=== PATIENT | male | born 1930 | race Caucasian/White ===

== ENCOUNTER 2016-11-06 09:22 | Outpatient (CLI) | payer MEDICARE | END 2016-11-06 09:23 | disposition home or self-care (01) | LOC: NAVSJIPCSP 09:22 | PROVIDERS: ATTEND Internal Medicine | DX: E78.5 Hyperlipidemia, unspecified (principal); E03.9 Hypothyroidism, unspecified; Z79.899 Other long term (current) drug therapy | CPT/HCPCS: 36415; 80061; 84443 ==

== ENCOUNTER 2017-02-05 10:17 | Outpatient (CLI) | payer MEDICARE ==
[2017-02-05 12:27] LABS: #Eosinphils 0.3 thou/uL (0.0-0.7); #Lymphocytes 1.5 thou/uL (1.20-3.40); #Monocytes 0.7 thou/uL (0.11-0.59); #Neutrophils 4.8 thou/uL (1.40-6.50); %Basophils 0.6 % (0.0-1.0); %Eosinophils 3.7 % (0.0-10.0); %Lymphocytes 20.7 % (21.0-51.0); %Monocytes 8.9 % (0.0-10.0); %Neutrophils 66.1 % (42.0-75.0); Hemoglobin 15.1 g/dL (14.0-18.0); Mean Corpuscular HGB CONC 31.6 g/dL (32.0-36.0); Mean Corpuscular Hemoglobin 29.3 pg (27.0-31.0); Mean Corpuscular Volume 92.8 fl (80.0-94.0); Mean Platelet Volume 9.5 fL (7.4-10.4); Platelet Count 179 thou/uL (130-400); RBC Distribution Width 12.9 % (11.5-14.5); Red Blood Cell (RBC) Count 5.14 mill/uL (4.70-6.10); White Blood Cell (WBC) Count 7.3 thou/uL (4.8-10.8)
[2017-02-05 13:16] LABS: ALT (SGPT) 21 U/L (8-55); AST (SGOT) 24 U/L (5-34); Albumin 4.3 g/dL (3.4-4.8); Alkaline Phosphatase 73 U/L (40-150); Anion Gap 16 mmol/L (10-20); BUN (Urea Nitrogen) 24 mg/dL (8.4-25.7); Bilirubin, Total 0.9 mg/dL (0.2-1.2); Calc. Creatinine Clearance 0 mL/min (70-130); Calcium 9.3 mg/dL (7.8-10.44); Carbon Dioxide 23 mmol/L (23-31); Cardiac Risk 3.1 (Less than 4.5); Chloride 111 mmol/L (98-107); Cholesterol 132 mg/dl (< 200 Desired); Estimated GFR-MDRD 59; Globulin 2.7 g/dL (2.4-3.5); Glucose 92 mg/dL (83-110); HDL Cholesterol 42 mg/dL (>60 Neg Risk); LDL Cholesterol, Calculated 76 mg/dL; Potassium 4.8 mmol/L (3.5-5.1); Sodium 145 mmol/L (136-145); Triglycerides 70 mg/dL (Less than 150)
== END 2017-02-05 10:18 | disposition home or self-care (01) ==
LOC: NAVSJIPCSP 10:17
PROVIDERS: ATTEND Internal Medicine
DX: E78.5 Hyperlipidemia, unspecified (principal); E03.9 Hypothyroidism, unspecified; Z79.899 Other long term (current) drug therapy
CPT/HCPCS: 36415; 80053; 80061; 84443; 85025

== ENCOUNTER 2017-05-12 09:51 | Outpatient (CLI) | payer MEDICARE ==
[2017-05-12 12:57] LABS: Cardiac Risk 2.8 (Less than 4.5)
== END 2017-05-12 09:52 | disposition home or self-care (01) ==
LOC: NAVSJIPCSP 09:51
PROVIDERS: ATTEND Internal Medicine
DX: E03.9 Hypothyroidism, unspecified (principal); E78.5 Hyperlipidemia, unspecified; Z79.899 Other long term (current) drug therapy
CPT/HCPCS: 36415; 80061; 84443

== ENCOUNTER 2018-10-01 14:40 | Emergency (ER) | payer MEDICARE ==
[2018-10-01 16:03] LABS: Hemoglobin 12.4 g/dL (14.0-18.0); Mean Corpuscular Hemoglobin 27.8 pg (27.0-31.0); Mean Corpuscular Volume 89.7 fL (78.0-98.0); Mean Platelet Volume 7.5 fL (7.4-10.4); Platelet Count 376 thou/uL (130-400); RBC Distribution Width 15.2 % (11.5-14.5); Red Blood Cell (RBC) Count 4.46 mill/uL (4.70-6.10); White Blood Cell (WBC) Count 21.7 thou/uL (4.8-10.8)
[2018-10-01 16:05] LABS: ALT (SGPT) 82 U/L (8-55); AST (SGOT) 62 U/L (5-34); Albumin 3.7 g/dL (3.4-4.8); Alkaline Phosphatase 298 U/L (40-150); Anion Gap 15 mmol/L (10-20); BUN (Urea Nitrogen) 27 mg/dL (8.4-25.7); Bilirubin, Total 1.8 mg/dL (0.2-1.2); CK (CPK) 260 U/L (30-200); Calc. Creatinine Clearance 0 mL/min (70-130); Carbon Dioxide 26 mmol/L (23-31); Chloride 109 mmol/L (98-107); Estimated GFR-MDRD 66; Globulin 3.6 g/dL (2.4-3.5); Glucose 132 mg/dL (83-110); Potassium 4.4 mmol/L (3.5-5.1); Protein, Total 7.3 g/dL (5.8-8.1); Sodium 146 mmol/L (136-145)
[2018-10-01 16:08] LABS: MDiff Complete? YES
[2018-10-01 16:10] LABS: Band 5 % (5-11); Lymphocytes 7 % (21-51); Monocytes 4 % (0-10); Neutrophil 84 % (42-75); Platelet Morphology Comment Appears Adequate
--- NOTE | 2018-10-01 16:16 | RAD ---
CHEST 1 VIEW: COMPARISON: 09/19/2015. HISTORY: Weakness and fall. Dyspnea. FINDINGS: Atherosclerosis of the aortic knob. Enlarged cardiac silhouette. The pulmonary vessel and hilum are normal. Costophrenic angles are clear. No mass. No consolidation. No pneumothorax or osseous abn ormalities. IMPRESSION: Atherosclerosis. No acute cardiopulmonary process. POS: [facility]
[2018-10-01 16:36] LABS: CKMB 9.4 ng/mL (0-6.6)
[2018-10-01] MEDS ORDERED: Piperacillin/Tazobactam 3.375 GM VIAL ONE (16:38)
[2018-10-01] MEDS ORDERED: Sodium Chloride 0.9% 100 ML ONE (16:40)
[2018-10-01 17:05] LABS: Bilirubin Negative (Negative); Blood, Urine Moderate (Negative); Clarity Clear (Clear); Glucose, Urine (Dipstick) Negative (Negative); Leukocyte Small (Negative); Nitrite Negative (Negative); Protein, Urine (Dipstick) Negative (Neg-Trace); Specific Gravity, Urine 1.025 (1.005-1.030); Urobilinogen 0.2 mg/dL (0.2-1.0); pH, Urine 5.5 (5.0-9.0)
[2018-10-01] MEDS ORDERED: Sodium Chloride 0.9% 250 ML 250 ML ONE (17:20)
[2018-10-01 17:23] LABS: Bacteria/HPF 1+ HPF (None Seen); Other Microscopic Description NO; Squamous Epithelial 0-3 HPF (0-3)
== END 2018-10-01 18:47 | disposition short-term general hospital (02) ==
LOC: NAV ERS 14:40
DX: A41.9 Sepsis, unspecified organism (principal); E03.9 Hypothyroidism, unspecified; I10 Essential (primary) hypertension; I48.91 Unspecified atrial fibrillation; Z79.899 Other long term (current) drug therapy; Z79.01 Long term (current) use of anticoagulants
CPT/HCPCS: 51701; 71045; 80053; 81003; 81015; 82550; 82553; 83605; 83880; 84484; 85025; 87040; 87149; 93005; 96365; 96367; J2543; J3370; J7050

== ENCOUNTER 2018-10-05 22:01 | Inpatient (IN) | payer MEDICARE ==
[2018-10-06] MEDS: Levothyroxine Sodium 100 MCG TAB PO SCH (05:26)
[2018-10-06] MEDS: Carvedilol 3.125 MG TAB PO SCH ×2 (08:14→17:00)
[2018-10-06] MEDS: Apixaban 5 MG TAB PO SCH ×2 (08:15→21:04)
[2018-10-06] MEDS: Aspirin 81 mg Enteric Coated Tablet PO SCH (08:15)
[2018-10-06] MEDS: Amoxicillin/Potassium Clav 875 MG TAB PO SCH ×2 (08:15→21:04)
[2018-10-06] MEDS: Furosemide 40 MG TAB PO SCH (08:15)
--- NOTE | 2018-10-06 17:09 | HP ---
CHIEF COMPLAINT: Enterococcal urinary tract infection and deconditioning, requiring physical therapy and finishing up his antibiotics. BRIEF HISTORY: This is a very pleasant 88-year-old male, who is well known to me for quite a few years, apparently noticed significant weakness and altered mental status and so was brought to the ER for evaluation. He was felt to be septic and was started on IV fluids, IV antibiotics, and transferred to [facility], which is his preferred hospital. He was noted to have what seems to be urinary tract infection with enterococcus. He also had a mild bump in his troponin, but that was felt to be due to demand ischemia. He was seen by Cardiology. He was changed from Xarelto and Brilinta to Eliquis and aspirin and he was felt to be a candidate for inpatient rehabilitation and transferred here. His IV antibiotics were switched to oral Augmentin. All his other medicines remain the same. The patient is up in bed and denies any complaints. He denies any fever or chills. He denies any chest pain or shortness of breath. He is tolerating his medications and his diet. He states he is significantly weak, more so with his right knee. He does have a significant bruise on his knee and he states that this was x-rayed at [facility]. I do not have that report, and I have asked nursing to get me a copy of that report. 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 PAST MEDICAL HISTORY: 1. Atrial fibrillation. 2. Hypertension. 3. Hypothyroidism. 4. Degenerative joint disease. 5. History of MRSA, requiring chronic suppressive therapy, which he has completed about a year or two ago. PAST SURGICAL HISTORY: 1. 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 2. Tonsillectomy. ALLERGIES: TO CEPHALEXIN, BUT HE CAN TOLERATE PENICILLIN. PSYCHOSOCIAL HISTORY: No history of tobacco or IV drug abuse. Social alcohol intake, very active and independent with his cane. FAMILY HISTORY: Noncontributory to current admission. REVIEW OF SYSTEMS: CARDIOVASCULAR: Denies any chest pain, shortness of breath, palpitations, PND, orthopnea, or pedal edema. RESPIRATORY: Denies any chronic cough, expectoration, or pleuritic type chest pain. GASTROINTESTINAL: Denies any nausea, vomiting, diarrhea, constipation, hematemesis, melena, or hematochezia. GENITOURINARY: Denies any hematuria. CENTRAL NERVOUS SYSTEM: Denies any focal numbness or weakness. Just generalized weakness. No fainting spells. CURRENT MEDICATIONS: 1. Augmentin 875 mg p.o. b.i.d. until October 08. 2. Eliquis 5 mg b.i.d. 3. Ecotrin 81 mg daily. 4. Carvedilol 3.125 mg b.i.d. 5. Lasix 40 mg daily. 6. Levoxyl 200 mcg p.o. in the morning. 7. Lisinopril 5 mg at bedtime. 8. Protonix 40 mg daily. PHYSICAL EXAMINATION: GENERAL: Very pleasant 88-year-old male, in no apparent distress. He responds appropriate to questions. He is alert, awake, and oriented x3. No family at bedside. VITAL SIGNS: He is afebrile. Heart rate 64, respirations 20, oxygen saturation 95% on room air, blood pressure 124/58. HEENT: Normocephalic, atraumatic. Pupils equal and reactive to light and accommodation. Extraocular muscles intact. NECK: No JVD, thyromegaly, cervical carotid bruits. CARDIOVASCULAR: S1 and S2 plus. Rate and rhythm regular. RESPIRATORY: Normal vesicular breath sounds heard on lung castillo. ABDOMEN: Soft, nontender. Bowel sounds heard in all quadrants. EXTREMITIES: Without cyanosis, clubbing. Right knee with confusion, crepitus with range of motion. Bilateral legs with stasis dermatitis. CENTRAL NERVOUS SYSTEM: Alert, awake, and oriented x3. Cranial nerves 2 through 12 intact. Generalized weakness and grossly nonfocal. LABORATORY VALUES: Pending. IMPRESSION: 1. Urinary tract infection, possibly with enterococcus. 2. Hypertension. 3. Hypothyroidism. 4. Atrial fibrillation. 5. Osteoarthritis. 6. Deconditioning. PLAN: 1. Continue current medications. 2. Heart healthy diet. 3. DVT prophylaxis-he is already on Eliquis. 4. Stress ulcer prophylaxis-he is on Protonix. 5. Decubitus precautions. 6. Monitor right knee contusion. 7. Get x-ray report from [facility]. 8. PT, OT eval and treat. 9. Routine laboratory values. 10. Discussed with the patient in detail and all questions answered. 11. No family at bedside. 12. Estimated length of stay is 10 to 14 days. Monitor for any recurrence of urinary tract infection. Job ID: [id number]
[2018-10-06] MEDS: Lisinopril 5 MG TAB PO SCH (21:04)
[2018-10-07] MEDS: Levothyroxine Sodium 100 MCG TAB PO SCH (05:40)
[2018-10-07 05:57] LABS: #Lymphocytes 1.3 thou/uL (1.20-3.40); #Neutrophils 6.5 thou/uL (1.40-6.50); %Basophils 0.4 % (0.0-1.0); %Lymphocytes 14.5 % (21.0-51.0); %Monocytes 11.2 % (0.0-10.0); %Neutrophils 73.8 % (42.0-75.0); Hemoglobin 11.1 g/dL (14.0-18.0); Mean Corpuscular HGB CONC 30.1 g/dL (32.0-36.0); Mean Corpuscular Hemoglobin 26.9 pg (27.0-31.0); Mean Corpuscular Volume 89.4 fL (78.0-98.0); Mean Platelet Volume 6.7 fL (7.4-10.4); Platelet Count 406 thou/uL (130-400); RBC Distribution Width 15.1 % (11.5-14.5); Red Blood Cell (RBC) Count 4.12 mill/uL (4.70-6.10); White Blood Cell (WBC) Count 8.8 thou/uL (4.8-10.8)
[2018-10-07 06:03] LABS: Anion Gap 13 mmol/L (10-20); BUN (Urea Nitrogen) 38 mg/dL (8.4-25.7); Calc. Creatinine Clearance 63 mL/min (70-130); Carbon Dioxide 31 mmol/L (23-31); Chloride 106 mmol/L (98-107); Estimated GFR-MDRD 57; Glucose 130 mg/dL (83-110); Potassium 3.7 mmol/L (3.5-5.1); Sodium 146 mmol/L (136-145)
[2018-10-07] MEDS: Furosemide 40 MG TAB PO SCH (09:06)
[2018-10-07] MEDS: Carvedilol 3.125 MG TAB PO SCH ×2 (09:07→17:52)
[2018-10-07] MEDS: Amoxicillin/Potassium Clav 875 MG TAB PO SCH ×2 (09:07→20:17)
[2018-10-07] MEDS: Aspirin 81 mg Enteric Coated Tablet PO SCH (09:07)
[2018-10-07] MEDS: Apixaban 5 MG TAB PO SCH ×2 (09:07→20:17)
[2018-10-07] MEDS: Acetaminophen 500 MG TAB PO PRN (11:29)
--- NOTE | 2018-10-07 13:17 | PRG ---
DATE OF SERVICE: SUBJECTIVE: Mr. Rosa is doing well. He is up in his chair. He just finished his lunch. He denies any complaints. He states that he did well with therapy this morning. He continues to have some on and off right knee pain. He has seen Dr. Figueredo in the past and he was advised that he has end-stage arthritis and really needs a knee replacement since he had significant issues with the left knee replacement, requiring long-term IV antibiotics. Mr. Rosa is very hesitant to undergo any further surgeries. He apparently had an x-ray of the knee up at [facility], but I have not received any report, so I will go ahead and order another knee x-ray since he continues to have pain and he fell on it. OBJECTIVE: VITAL SIGNS: He is afebrile. Heart rate 62, respirations 22, oxygen saturation 93% on room air, blood pressure 124/65. CARDIOVASCULAR: S1 and S2 plus. RESPIRATORY: Normal vesicular breath sounds. ABDOMEN: Soft, nontender. Bowel sounds heard in all quadrants. EXTREMITIES: Without cyanosis, clubbing. Right knee contusion is improving. Bilateral stasis dermatitis. CENTRAL NERVOUS SYSTEM: Alert, awake, and oriented x3. Cranial nerves 2 through 12 intact. LABORATORY DATA: Laboratory values done this morning shows a sodium of 146, potassium 3.7, BUN and creatinine are 38 and 1.2, blood sugar is 130. TSH 4.2805. White blood count is 8.8 with an H and H of 11.1 and 36.8. IMPRESSION: 1. Enterococcal urinary tract infection, improving. 2. Atrial fibrillation. 3. Hypothyroidism. 4. Osteoarthritis. 5. Knee confusion. PLAN: 1. Check x-ray of right knee. 2. Continue current medications. 3. Low-sodium diet. 4. Monitor heart rate and rhythm. 5. DVT prophylaxis-he is on Eliquis. 6. Stress ulcer prophylaxis-he is on Protonix. 7. Routine laboratory values. 8. Continue physical therapy. 9. Discussed with the patient and son in detail and all questions answered. Job ID: [id number]
--- NOTE | 2018-10-07 15:51 | RAD ---
RIGHT KNEE RADIOGRAPHS FOUR VIEWS: Date: 10-07-18 Provided Clinical History: Right knee pain status post injury. FINDINGS: There is no evidence for fracture or other acute osseous abnormality. Advanced tricompartmental degen erative changes are present. There is soft tissue prominence at the inferior pre-patellar regions. Th ere is knee joint capsular distension likely reflecting effusion. Vascular calcifications are seen. IMPRESSION: 1. No evidence for fracture. If there is persistent clinical concern, conservative management and fol low up imaging are advised. 2. Advanced tricompartment degenerative change for associated knee joint effusion. 3. Soft tissue swelling overlying the region of the patellar tendon. This could reflect findings rela jazmin to contusion. Correlation with concerns for bursitis recommended. POS: [facility]
[2018-10-07] MEDS: Lisinopril 5 MG TAB PO SCH (20:17)
[2018-10-08] MEDS: Levothyroxine Sodium 100 MCG TAB PO SCH (05:52)
[2018-10-08] MEDS: Acetaminophen 500 MG TAB PO PRN (08:41)
[2018-10-08] MEDS: Amoxicillin/Potassium Clav 875 MG TAB PO SCH ×2 (08:42→20:16)
[2018-10-08] MEDS: Aspirin 81 mg Enteric Coated Tablet PO SCH (08:42)
[2018-10-08] MEDS: Apixaban 5 MG TAB PO SCH ×2 (08:43→20:16)
[2018-10-08] MEDS: Carvedilol 3.125 MG TAB PO SCH ×2 (08:43→17:54)
[2018-10-08] MEDS: Furosemide 40 MG TAB PO SCH (08:43)
[2018-10-08] MEDS: Lisinopril 5 MG TAB PO SCH (20:16)
[2018-10-09 05:15] LABS: Hemoglobin 10.4 g/dL (14.0-18.0); Platelet Count 378 thou/uL (130-400)
[2018-10-09] MEDS: Levothyroxine Sodium 100 MCG TAB PO SCH (05:20)
[2018-10-09] MEDS ORDERED: Bisacodyl 10 MG SUPP PR PRN (06:20)
[2018-10-09] MEDS: Aspirin 81 mg Enteric Coated Tablet PO SCH (09:23)
[2018-10-09] MEDS: Carvedilol 3.125 MG TAB PO SCH ×2 (09:23→17:58)
[2018-10-09] MEDS: Furosemide 40 MG TAB PO SCH (09:23)
[2018-10-09] MEDS: Amoxicillin/Potassium Clav 875 MG TAB PO SCH ×2 (09:23→20:09)
[2018-10-09] MEDS: Polyethylene Glycol 3350 17 GM Packet PO SCH (09:25)
[2018-10-09] MEDS: Apixaban 5 MG TAB PO SCH ×2 (09:25→20:09)
[2018-10-09] MEDS: Acetaminophen 500 MG TAB PO PRN (09:26)
--- NOTE | 2018-10-09 10:48 | PRG ---
DATE OF SERVICE: 10/08/2018 SUBJECTIVE: Mr. Rosa is doing well. He is improving with therapy. He denies any complaints. Pain is well controlled. X-ray of his knee just shows severe degenerative joint disease and no evidence of fracture. No further falls or his leg buckling. OBJECTIVE: VITAL SIGNS: He is afebrile, heart rate 58, respirations 18, oxygen saturation 95% on room air, blood pressure 121/56. CARDIOVASCULAR SYSTEM: S1 and S2 plus. RESPIRATORY SYSTEM: Normal vesicular breath sounds. ABDOMEN: Soft and nontender. Bowel sounds heard in all quadrants. EXTREMITIES: Without cyanosis or clubbing. Severe DJD of right knee. CENTRAL NERVOUS SYSTEM: Alert, awake, and oriented x3. Cranial nerves 2 through 12 grossly intact. IMPRESSION: 1. Resolving Enterococcus urinary tract infection. 2. Atrial fibrillation. 3. Chronic systolic congestive heart failure. 4. Hypothyroidism. 5. Gastroesophageal reflux disease. 6. Osteoarthritis. 7. Lower extremity stasis dermatitis. 8. Hypertension. PLAN: 1. Continue current medications. 2. Heart healthy diet. 3. Monitor heart rate and rhythm. 4. DVT and stress ulcer prophylaxis, already on Eliquis and pantoprazole. 5. Decubitus precautions. 6. Physical therapy. 7. Routine laboratory values. 8. Discussed with the patient in detail. All questions answered. Job ID: [id number]
[2018-10-09] MEDS: Lisinopril 5 MG TAB PO SCH (20:09)
[2018-10-10] MEDS: Levothyroxine Sodium 100 MCG TAB PO SCH (05:08)
--- NOTE | 2018-10-10 07:30 | PRG ---
DATE OF SERVICE: 10/10/2018 SUBJECTIVE: Mr. Rosa is a very pleasant 88-year-old white male, who had significant weakness and altered mental status, was brought to the emergency room and found to have enterococcus urinary tract infection and sepsis. He was taken to the [facility], treated with IV antibiotics and then transferred to [facility] for Physical therapy and Occupational therapy. The patient has been doing very well, states he had a good day yesterday. He is walking quite a bit and hoping to go home sometimes next week when he gets recovered enough to care for himself. PHYSICAL EXAMINATION: VITAL SIGNS: Reveal blood pressure 112/59, pulse 70 to 80, respirations 16, O2 saturation 96% on room air, T-max 98.2. GENERAL: This is a well-developed, well-nourished, very pleasant white male, in no apparent distress at this time. HEENT: Reveals normocephalic, nontraumatic cranium. Pupils are equally round and reactive to light. Extraocular movements are intact. Nose and throat are moist. NECK: Supple without masses, nodes, or bruits. CHEST: Clear to auscultation. No rales, rhonchi, wheezes, or cough is heard. HEART: Reveals a regular rate and rhythm without murmurs, gallops, or rubs. ABDOMEN: Slightly obese, soft, nontender without organomegaly. Normal bowel sounds are heard in all 4 quadrants. : Deferred. EXTREMITIES: Reveal no clubbing, cyanosis, or edema. Right knee has some degenerative changes. The patient has stasis dermatitis bilaterally. NEUROLOGIC: The patient is awake, alert, and oriented x3. ASSESSMENT: 1. Enterococcus urinary tract infection, improved. 2. Hypertension. 3. Hypothyroidism. 4. Atrial fibrillation. 5. Osteoarthritis. 6. Deconditioning. PLAN: 1. Deep vein thrombosis prophylaxis, on Eliquis. 2. Stress ulcer prophylaxis, on Protonix. 3. Decubitus precautions. 4. Monitor the patient's blood pressure closely and adjust medications as needed. 5. Monitor the patient's heart rate and monitor for RVR. 6. Continue Physical therapy and Occupational therapy. Job ID: [id number]
[2018-10-10] MEDS: Carvedilol 3.125 MG TAB PO SCH ×2 (08:26→17:35)
[2018-10-10] MEDS: Aspirin 81 mg Enteric Coated Tablet PO SCH (08:26)
[2018-10-10] MEDS: Furosemide 40 MG TAB PO SCH (08:26)
[2018-10-10] MEDS: Amoxicillin/Potassium Clav 875 MG TAB PO SCH ×2 (08:26→20:46)
[2018-10-10] MEDS: Apixaban 5 MG TAB PO SCH ×2 (08:26→20:46)
[2018-10-10] MEDS: Polyethylene Glycol 3350 17 GM Packet PO SCH (08:27)
[2018-10-10] MEDS: Lisinopril 5 MG TAB PO SCH (20:47)
[2018-10-11 05:12] LABS: Hemoglobin 11.5 g/dL (14.0-18.0); Platelet Count 442 thou/uL (130-400)
[2018-10-11] MEDS: Levothyroxine Sodium 100 MCG TAB PO SCH (05:36)
--- NOTE | 2018-10-11 08:11 | PRG ---
DATE OF SERVICE: 10/11/2018 SUBJECTIVE: Mr. Rosa is a very pleasant 88-year-old white male. He was brought to the emergency room with altered mental status and weakness. He was found to have Enterococcus urinary tract infection and sepsis. He was treated with IV antibiotics, and eventually transferred to [facility] to increase his strength and stamina through physical therapy and occupational therapy. The patient is awake this morning when I saw him. He states he had a good day yesterday and is getting somewhat stronger. He is very independent. We did talk about him getting a caregiver to stay with him more than once a week. OBJECTIVE: VITAL SIGNS: Today reveal blood pressure 141/63, pulse 74, respirations 22, O2 saturation 94% to 95% on room air, and T-max 97.6. GENERAL: This is a well-developed, well-nourished, slightly obese white male, in no apparent distress at this time. HEENT: Normocephalic, nontraumatic cranium. Pupils equal, round, and reactive. Extraocular movements are intact. Nose and throat are moist and clear. NECK: Supple without masses, nodes, or bruits. CHEST: Clear to auscultation. No rales, rhonchi, wheezes, or cough are heard. HEART: Reveals a regular rate and rhythm without murmurs, gallops, or rubs. ABDOMEN: Soft, nontender without organomegaly. Normal bowel sounds are within normal limits. No rebound or guarding is noted. : Deferred. EXTREMITIES: Reveal no clubbing, cyanosis, or edema. Right knee continues to have degenerative changes. The patient has also bilateral stasis dermatitis. NEUROLOGIC: The patient is awake, alert, and oriented x3. ASSESSMENT: 1. Enterococcus urinary tract infection, improved. 2. Hypertension. 3. Hypothyroidism. 4. Atrial fibrillation. 5. Osteoarthritis. 6. Generalized weakness with deconditioning. PLAN: 1. Continue on Eliquis for DVT prophylaxis. 2. Stress ulcer prophylaxis, on Protonix. 3. Continue decubitus precautions. 4. Stress ulcer prophylaxis. 5. Continue to monitor the patient's blood pressure closely and adjust medications as needed. 6. Monitor the patient's heart rate and monitor for RVR. 7. Continue physical therapy and occupational therapy. Job ID: [id number]
[2018-10-11] MEDS: Amoxicillin/Potassium Clav 875 MG TAB PO SCH ×2 (08:15→21:14)
[2018-10-11] MEDS: Carvedilol 3.125 MG TAB PO SCH ×2 (08:15→17:12)
[2018-10-11] MEDS: Polyethylene Glycol 3350 17 GM Packet PO SCH (08:16)
[2018-10-11] MEDS: Aspirin 81 mg Enteric Coated Tablet PO SCH (08:16)
[2018-10-11] MEDS: Furosemide 40 MG TAB PO SCH (08:16)
[2018-10-11] MEDS: Apixaban 5 MG TAB PO SCH ×2 (08:16→21:14)
[2018-10-11] MEDS: Lisinopril 5 MG TAB PO SCH (21:14)
[2018-10-12] MEDS: Levothyroxine Sodium 100 MCG TAB PO SCH (05:40)
[2018-10-12] MEDS: Amoxicillin/Potassium Clav 875 MG TAB PO SCH ×2 (08:26→20:47)
[2018-10-12] MEDS: Furosemide 40 MG TAB PO SCH (08:27)
[2018-10-12] MEDS: Carvedilol 3.125 MG TAB PO SCH ×2 (08:27→17:50)
[2018-10-12] MEDS: Apixaban 5 MG TAB PO SCH ×2 (08:27→20:47)
[2018-10-12] MEDS: Polyethylene Glycol 3350 17 GM Packet PO SCH (08:27)
[2018-10-12] MEDS: Aspirin 81 mg Enteric Coated Tablet PO SCH (08:27)
[2018-10-12] MEDS: Acetaminophen 500 MG TAB PO PRN (09:05)
--- NOTE | 2018-10-12 13:55 | PRG ---
DATE OF SERVICE: 10/12/2018 SUBJECTIVE: Mr. Rosa is doing well except he apparently normally takes 2 [id number] Aleve in the morning to help with his arthritis and the Tylenol is not working, so I will get him back on the naproxen 500 mg once daily. He is doing well otherwise. Denies any questions or concerns. No further falls or his right knee buckling. He states that he is happy with his progress. No family at bedside. OBJECTIVE: VITAL SIGNS: He is afebrile. Heart rate 57, respirations 20, oxygen saturation 96% on room air, and blood pressure 122/58. CARDIOVASCULAR SYSTEM: S1 and S2 plus. RESPIRATORY SYSTEM: Normal vesicular breath sounds. ABDOMEN: Soft and nontender. Bowel sounds are heard in all quadrants. EXTREMITIES: Without cyanosis or clubbing. Right knee contusion is improving. BUN and creatinine are 38 and 1.2. IMPRESSION: 1. Resolved enterococcal urinary tract infection. 2. Chronic systolic congestive heart failure. 3. Paroxysmal atrial fibrillation. 4. Osteoarthritis. 5. Hypothyroidism. 6. Hypertension. PLAN: 1. Continue current medications. 2. Heart healthy diet. 3. DVT and stress ulcer prophylaxis. He is already on Eliquis and Protonix. 4. Decubitus precautions. 5. Continue physical therapy and occupational therapy. 6. Routine laboratory values. 7. Discussed with the patient in detail and all questions answered. 8. Add naproxen 500 mg daily in the morning with breakfast. Job ID: [id number]
[2018-10-12] MEDS: Lisinopril 5 MG TAB PO SCH (20:47)
[2018-10-13] MEDS: Levothyroxine Sodium 100 MCG TAB PO SCH (05:31)
[2018-10-13 05:32] LABS: Hemoglobin 10.6 g/dL (14.0-18.0); Platelet Count 354 thou/uL (130-400)
[2018-10-13] MEDS: Furosemide 40 MG TAB PO SCH (08:16)
[2018-10-13] MEDS: Amoxicillin/Potassium Clav 875 MG TAB PO SCH ×2 (08:16→20:04)
[2018-10-13] MEDS: Aspirin 81 mg Enteric Coated Tablet PO SCH (08:16)
[2018-10-13] MEDS: Naproxen 500 MG TAB PO SCH (08:16)
[2018-10-13] MEDS: Apixaban 5 MG TAB PO SCH ×2 (08:17→20:04)
[2018-10-13] MEDS: Polyethylene Glycol 3350 17 GM Packet PO SCH (08:17)
[2018-10-13] MEDS: Carvedilol 3.125 MG TAB PO SCH ×2 (08:17→17:20)
[2018-10-13] MEDS: Acetaminophen 500 MG TAB PO PRN (08:25)
--- NOTE | 2018-10-13 13:49 | PRG ---
DATE OF SERVICE: 10/13/2018 SUBJECTIVE: Mr. Rosa is doing well. Denies any complaints. Resting comfortably. Tolerating his therapy. He states that the naproxen this morning really helped with his pain. No family at bedside. Denies any concerns or questions. Discussed with nursing. OBJECTIVE: VITAL SIGNS: He is afebrile. Heart rate 53, respirations 22, oxygen saturation 96% on room air, blood pressure 125/64. CARDIOVASCULAR: S1, S2 plus. RESPIRATORY: Normal vesicular breath sounds. ABDOMEN: Soft, nontender. Bowel sounds heard in all quadrants. EXTREMITIES: Improving contusion to his right knee and superficial abrasions are almost healed in his left leg. He does have some dry skin with some peeling skin. Advised Nursing to start using some moisturizing lotion. IMPRESSION: 1. Chronic systolic congestive heart failure. 2. Paroxysmal atrial fibrillation. 3. Hypertension. 4. Hypothyroidism. 5. Osteoarthritis. 6. Resolved enterococcal urinary tract infection. PLAN: 1. Continue current medications. 2. Nutritional support with heart-healthy diet. 3. DVT and stress ulcer prophylaxis - he is already on Eliquis and pantoprazole. 4. Decubitus precautions. 5. Wound care. 6. Physical therapy and occupational therapy. 7. Routine laboratory values. 8. Discussed with the patient and nursing in detail and all their questions answered. Job ID: [id number]
[2018-10-13] MEDS: Lisinopril 5 MG TAB PO SCH (20:04)
[2018-10-14] MEDS: Levothyroxine Sodium 100 MCG TAB PO SCH (04:56)
[2018-10-14] MEDS: Aspirin 81 mg Enteric Coated Tablet PO SCH (08:23)
[2018-10-14] MEDS: Amoxicillin/Potassium Clav 875 MG TAB PO SCH ×2 (08:23→20:14)
[2018-10-14] MEDS: Furosemide 40 MG TAB PO SCH (08:23)
[2018-10-14] MEDS: Carvedilol 3.125 MG TAB PO SCH ×2 (08:23→16:58)
[2018-10-14] MEDS: Apixaban 5 MG TAB PO SCH ×2 (08:23→20:14)
[2018-10-14] MEDS: Naproxen 500 MG TAB PO SCH (08:23)
[2018-10-14] MEDS: Polyethylene Glycol 3350 17 GM Packet PO SCH (08:24)
[2018-10-14] MEDS: Lisinopril 5 MG TAB PO SCH (20:14)
[2018-10-15] MEDS: Levothyroxine Sodium 100 MCG TAB PO SCH (05:33)
[2018-10-15 05:44] LABS: Hemoglobin 10.3 g/dL (14.0-18.0); Platelet Count 311 thou/uL (130-400)
[2018-10-15] MEDS: Naproxen 500 MG TAB PO SCH (08:37)
[2018-10-15] MEDS: Furosemide 40 MG TAB PO SCH (08:37)
[2018-10-15] MEDS: Apixaban 5 MG TAB PO SCH ×2 (08:37→21:26)
[2018-10-15] MEDS: Aspirin 81 mg Enteric Coated Tablet PO SCH (08:37)
[2018-10-15] MEDS: Polyethylene Glycol 3350 17 GM Packet PO SCH (08:37)
[2018-10-15] MEDS: Amoxicillin/Potassium Clav 875 MG TAB PO SCH ×2 (08:37→21:26)
[2018-10-15] MEDS: Carvedilol 3.125 MG TAB PO SCH ×2 (08:37→16:55)
--- NOTE | 2018-10-15 17:44 | PRG ---
DATE OF SERVICE: 10/15/2018 SUBJECTIVE: Mr. Rosa is up in his chair. He states that he did not do as well with therapy from the walking standpoint today as he has done in the past. He denies any chest pain, shortness of breath. Denies any lightheadedness or dizziness. No other concerns or questions. Discussed with nursing. OBJECTIVE: VITAL SIGNS: He is afebrile. Heart rate 63, respirations 22, oxygen saturation 96% on room air, and blood pressure 143/65. CARDIOVASCULAR: S1 and S2 plus. RESPIRATORY: Normal vesicular breath sounds. ABDOMEN: Soft, nontender. Bowel sounds heard in all quadrants. EXTREMITIES: Without cyanosis, clubbing. Improving contusions, right knee. Right knee with severe DJD. Bilateral lower extremity stasis dermatitis and venous insufficiency. LABORATORY DATA: His H and H are 10.3 and 33.7, platelet count is 311. Creatinine is 1.66 and GFR is down to 39, it was 1.34 yesterday. IMPRESSION: 1. Chronic systolic congestive heart failure. 2. Paroxysmal atrial fibrillation. 3. Hypertension. 4. Hypothyroidism. 5. Degenerative joint disease. 6. Resolved enterococcal urinary tract infection. 7. Worsening renal function. PLAN: 1. Continue heart healthy diet. 2. DVT and stress ulcer prophylaxis. 3. Decubitus precautions. 4. Hold his Lasix for a couple of days. 5. Monitor renal function. 6. Encourage p.o. intake. 7. Physical therapy. 8. Discussed with the patient in detail and all questions were answered. Job ID: [id number]
[2018-10-15] MEDS: Lisinopril 5 MG TAB PO SCH (21:26)
[2018-10-16] MEDS: Levothyroxine Sodium 100 MCG TAB PO SCH (06:03)
[2018-10-16] MEDS: Amoxicillin/Potassium Clav 875 MG TAB PO SCH (08:28)
[2018-10-16] MEDS: Carvedilol 3.125 MG TAB PO SCH ×2 (08:28→18:00)
[2018-10-16] MEDS: Apixaban 5 MG TAB PO SCH ×2 (08:29→20:12)
[2018-10-16] MEDS: Aspirin 81 mg Enteric Coated Tablet PO SCH (08:29)
[2018-10-16] MEDS: Naproxen 500 MG TAB PO SCH (08:30)
[2018-10-16] MEDS: Polyethylene Glycol 3350 17 GM Packet PO SCH (08:30)
[2018-10-16] MEDS: Lisinopril 5 MG TAB PO SCH (20:12)
[2018-10-17] MEDS: Levothyroxine Sodium 100 MCG TAB PO SCH (05:31)
[2018-10-17 05:35] LABS: Hemoglobin 10.4 g/dL (14.0-18.0); Platelet Count 297 thou/uL (130-400)
[2018-10-17] MEDS: Aspirin 81 mg Enteric Coated Tablet PO SCH (09:28)
[2018-10-17] MEDS: Carvedilol 3.125 MG TAB PO SCH ×2 (09:28→17:45)
[2018-10-17] MEDS: Apixaban 5 MG TAB PO SCH ×2 (09:28→20:01)
[2018-10-17] MEDS: Naproxen 500 MG TAB PO SCH (09:28)
[2018-10-17] MEDS: Polyethylene Glycol 3350 17 GM Packet PO SCH (09:28)
--- NOTE | 2018-10-17 17:02 | PRG ---
DATE OF SERVICE: 10/17/2018 SUBJECTIVE: Mr. Rosa is doing the same. Denies any complaints. His daughter got a list of questions written down and Mr. Rosa asked me one as to whether the x-ray needs to be reviewed by anybody else and I explained to him that the x-ray is usually read by the radiologist and then he just sends me the report and it does not state that there is any fracture to the knee. He apparently also had an x-ray at [facility], which also did not show any fractures. The 2nd question the daughter had was whether he had to see an orthopedic surgeon to have his knee drained. I explained to him that I do not see any effusion. The swelling is more on the outside of the knee from his fall and bruising than the inside. I advised him that I will be glad to refer him to an orthopedic surgeon if he wants to see one. He states that he apparently saw Dr. Carrasco just recently and he advised him that really the only thing that would benefit him is a knee replacement, but again given his multiple medical problems and his age, he said that unless absolutely necessary that he would not do it. He did see his heart doctor and his heart doctor apparently said the same thing. No family at bedside currently. His renal functions are much improved and back to normal since withholding his Lasix for a couple of days. PHYSICAL EXAMINATION: VITAL SIGNS: He is afebrile. Heart rate 55, respirations 16, oxygen saturation 90% on room air, it was in the afternoon when he was sleeping, blood pressure is 123/64; this morning it was 94%. CARDIOVASCULAR SYSTEM: S1 and S2 plus. RESPIRATORY SYSTEM: Normal vesicular breath sounds. ABDOMEN: Soft, nontender. Bowel sounds heard in all quadrants. EXTREMITIES: Without cyanosis, clubbing, improving contusion to the right knee, still with some superficial edema. IMPRESSION: 1. Chronic systolic congestive heart failure. 2. Resolved renal insufficiency, most likely prerenal from the diuretics. 3. Paroxysmal atrial fibrillation. 4. Hypertension. 5. Hypothyroidism. 6. Degenerative joint disease. 7. Resolving right knee contusion. 8. Resolved Enterococcal urinary tract infection. 9. Persistent deconditioning. 10. Stasis dermatitis. PLAN: 1. Continue current medications. 2. Heart healthy diet. 3. DVT and stress ulcer prophylaxis. 4. Decubitus precautions five. 5. Physical therapy. 6. Resume Lasix tomorrow. 7. Monitor for any decompensation of heart failure. 8. Monitor heart rate and rhythm. 9. Did discuss with the patient about him possibly needing to either be home with help and with his size, he will need to people at all times or possibly a private care facility or a care home, which I do not think he would like most of the regular care home, said would have to be more of a private setup. His son is also aware and they are just hoping that he will improve enough that he can go home with the help. Job ID: [id number]
[2018-10-17] MEDS: Lisinopril 5 MG TAB PO SCH (20:01)
[2018-10-18] MEDS: Levothyroxine Sodium 100 MCG TAB PO SCH (05:13)
[2018-10-18 05:39] LABS: Anion Gap 12 mmol/L (10-20); BUN (Urea Nitrogen) 45 mg/dL (8.4-25.7); Calc. Creatinine Clearance 67 mL/min (70-130); Calcium 9.2 mg/dL (7.8-10.44); Carbon Dioxide 25 mmol/L (23-31); Chloride 111 mmol/L (98-107); Estimated GFR-MDRD 62; Glucose 124 mg/dL (83-110); Potassium 4.9 mmol/L (3.5-5.1); Sodium 143 mmol/L (136-145)
[2018-10-18] MEDS: Carvedilol 3.125 MG TAB PO SCH ×2 (08:35→17:27)
[2018-10-18] MEDS: Naproxen 500 MG TAB PO SCH (08:35)
[2018-10-18] MEDS: Polyethylene Glycol 3350 17 GM Packet PO SCH (08:36)
[2018-10-18] MEDS: Apixaban 5 MG TAB PO SCH ×2 (08:36→20:27)
[2018-10-18] MEDS: Aspirin 81 mg Enteric Coated Tablet PO SCH (09:20)
--- NOTE | 2018-10-18 15:35 | PRG ---
DATE OF SERVICE: 10/18/2018 SUBJECTIVE: Mr. Rosa is doing the same, denies any complaints, is resting comfortably. He states other than his right knee, he is doing well. Discussed with nursing and no concerns or questions. OBJECTIVE: VITAL SIGNS: He is afebrile, heart rate 54, respirations 20, oxygen saturation 94% on room air, and blood pressure 136/64. CARDIOVASCULAR SYSTEM: S1, S2 plus. RESPIRATORY SYSTEM: Normal vesicular breath sounds. ABDOMEN: Soft, nontender. Bowel sounds heard in all quadrants. EXTREMITIES: Without cyanosis or clubbing. Improving right knee contusion. Severe DJD, right knee. Superficial edema is improving. CENTRAL NERVOUS SYSTEM: A and O x3. Cranial nerves 2 through 12 intact. Weakness mainly due to his right knee arthritis. IMPRESSION: 1. Status post fall and right knee contusion, improving. 2. Resolved urinary tract infection with enterococcus. 3. Chronic systolic congestive heart failure. 4. Paroxysmal atrial fibrillation. 5. Hypertension. 6. Hypothyroidism. 7. Degenerative joint disease. PLAN: 1. Continue current medications. 2. Resume Lasix. 3. Heart healthy diet. 4. Monitor heart rate and rhythm. 5. DVT and stress ulcer prophylaxis. 6. Decubitus precaution. 7. Stress ulcer prophylaxis. 8. Physical therapy. 9. Depending upon how he progresses next week, we will decide what the next best option is. Job ID: [id number]
[2018-10-18] MEDS: Lisinopril 5 MG TAB PO SCH (20:27)
[2018-10-19] MEDS: Levothyroxine Sodium 100 MCG TAB PO SCH (05:01)
[2018-10-19 05:21] LABS: Hemoglobin 11.2 g/dL (14.0-18.0); Platelet Count 312 thou/uL (130-400)
[2018-10-19] MEDS: Carvedilol 3.125 MG TAB PO SCH ×2 (08:39→16:25)
[2018-10-19] MEDS: Apixaban 5 MG TAB PO SCH ×2 (08:39→20:10)
[2018-10-19] MEDS: Naproxen 500 MG TAB PO SCH (08:40)
[2018-10-19] MEDS: Aspirin 81 mg Enteric Coated Tablet PO SCH (08:40)
[2018-10-19] MEDS: Polyethylene Glycol 3350 17 GM Packet PO SCH (08:40)
[2018-10-19] MEDS: Furosemide 40 MG TAB PO SCH (08:40)
--- NOTE | 2018-10-19 13:33 | PRG ---
DATE OF SERVICE: 10/19/2018 SUBJECTIVE: Mr. Rosa is resting in bed. He finished his therapy session this morning. He stated that it went very well today. He just finished his lunch. He denies any concerns or questions. He right now does not want to go and see the orthopedic surgeon. He apparently saw Dr. Figueredo, not Dr. Carrasco. Also, discussed his case with his son. OBJECTIVE: VITAL SIGNS: He is afebrile, heart rate 59, respirations 20, oxygen saturation is 94% on room air, and blood pressure 133/61. CARDIOVASCULAR SYSTEM: S1 and S2 plus. RESPIRATORY SYSTEM: Normal vesicular breath sounds. ABDOMEN: Soft, nontender. Bowel sounds heard in all quadrants. EXTREMITIES: Without cyanosis or clubbing. Resolving hematoma through the medial aspect of his right knee. Significant DJD, right knee. LABORATORY DATA: H and H are 11.2 and 37.2 with a platelet count of 312. Sodium 143, potassium 4.9, BUN and creatinine are 1.24. We will reduce his Lasix to 20 mg once daily. IMPRESSION: 1. Chronic systolic congestive heart failure, well tolerated. 2. Resolved renal insufficiency, likely due to over-diuresis. 3. Paroxysmal atrial fibrillation. 4. Hypertension, well controlled. 5. Hypothyroidism. 6. Degenerative joint disease. 7. Deconditioning. PLAN: 1. Decrease Lasix to 20 mg daily. 2. Continue nutritional support with heart healthy diet. 3. Monitor blood pressure and adjust medications as needed. 4. Monitor heart rate and rhythm. 5. DVT and stress ulcer prophylaxis. 6. Decubitus precaution. 7. Routine laboratory values. 8. Physical therapy. 9. Discussed with the patient and son in detail. All questions answered. Job ID: [id number]
[2018-10-19] MEDS: Lisinopril 5 MG TAB PO SCH (20:10)
[2018-10-20] MEDS: Levothyroxine Sodium 100 MCG TAB PO SCH (05:11)
[2018-10-20] MEDS: Apixaban 5 MG TAB PO SCH ×2 (08:50→20:18)
[2018-10-20] MEDS: Carvedilol 3.125 MG TAB PO SCH ×2 (08:50→16:22)
[2018-10-20] MEDS: Naproxen 500 MG TAB PO SCH (08:50)
[2018-10-20] MEDS: Furosemide 20 MG TAB PO SCH (08:50)
[2018-10-20] MEDS: Aspirin 81 mg Enteric Coated Tablet PO SCH (08:50)
[2018-10-20] MEDS: Polyethylene Glycol 3350 17 GM Packet PO SCH (08:51)
[2018-10-20] MEDS: Lisinopril 5 MG TAB PO SCH (20:17)
[2018-10-21] MEDS: Levothyroxine Sodium 100 MCG TAB PO SCH (05:16)
[2018-10-21 05:17] LABS: Platelet Count 286 thou/uL (130-400)
[2018-10-21] MEDS: Apixaban 5 MG TAB PO SCH ×2 (09:31→20:33)
[2018-10-21] MEDS: Furosemide 20 MG TAB PO SCH (09:31)
[2018-10-21] MEDS: Aspirin 81 mg Enteric Coated Tablet PO SCH (09:31)
[2018-10-21] MEDS: Naproxen 500 MG TAB PO SCH (09:31)
[2018-10-21] MEDS: Carvedilol 3.125 MG TAB PO SCH ×2 (09:31→18:39)
[2018-10-21] MEDS: Polyethylene Glycol 3350 17 GM Packet PO SCH (09:32)
--- NOTE | 2018-10-21 12:35 | PRG ---
DATE OF SERVICE: 10/21/2018 SUBJECTIVE: Mr. Rosa seems to be doing better. He apparently ambulated all the way around the nurse's station with rest for 1 minute. Pain seems to be under control. Denies any fever or chills. Denies any chest pain or shortness of breath. OBJECTIVE: VITAL SIGNS: He is afebrile. Heart rate 65, respirations 16, oxygen saturation 95% on room air, blood pressure 131/60. CARDIOVASCULAR SYSTEM: S1-S2 plus. RESPIRATORY SYSTEM: Normal vesicular breath sounds. ABDOMEN: Soft, nontender. Bowel sounds heard in all quadrants. EXTREMITIES: Without cyanosis or clubbing. Right knee contusion is improving. Superficial edema is also improving. CENTRAL NERVOUS SYSTEM: He is alert, awake, and oriented x3. Cranial nerves 2 through 12 intact. Generalized weakness. IMPRESSION: 1. Resolved Enterococcus urinary tract infection. 2. Significant deconditioning, slow improvement. 3. Severe degenerative joint disease right knee with superimposed knee contusion. 4. Paroxysmal atrial fibrillation. 5. Chronic systolic congestive heart failure. 6. Hypertension. 7. Hypothyroidism. PLAN: 1. Continue current medications. 2. Nutritional support. 3. Heart healthy diet. 4. Monitor heart rate and rhythm. 5. DVT and stress ulcer prophylaxis. 6. Decubitus precaution. 7. Continue physical therapy. Discussed with therapy day before yesterday and they do not recommend a knee brace as they think that it is not going to help him very much and continue routine laboratory values. Discussed with nursing. Job ID: [id number]
[2018-10-21] MEDS: Lisinopril 5 MG TAB PO SCH (20:33)
[2018-10-22] MEDS: Levothyroxine Sodium 100 MCG TAB PO SCH (05:56)
[2018-10-22] MEDS: Naproxen 500 MG TAB PO SCH (09:58)
[2018-10-22] MEDS: Aspirin 81 mg Enteric Coated Tablet PO SCH (09:58)
[2018-10-22] MEDS: Polyethylene Glycol 3350 17 GM Packet PO SCH (09:59)
[2018-10-22] MEDS: Carvedilol 3.125 MG TAB PO SCH ×2 (09:59→17:11)
[2018-10-22] MEDS: Furosemide 20 MG TAB PO SCH (09:59)
[2018-10-22] MEDS: Apixaban 5 MG TAB PO SCH ×2 (09:59→20:47)
[2018-10-22] MEDS: Lisinopril 5 MG TAB PO SCH (20:47)
[2018-10-23] MEDS: Levothyroxine Sodium 100 MCG TAB PO SCH (04:59)
[2018-10-23 05:20] LABS: Hemoglobin 10.9 g/dL (14.0-18.0); Platelet Count 261 thou/uL (130-400)
--- NOTE | 2018-10-23 05:21 | DIS ---
DATE OF ADMISSION: 10/05/2018 DATE OF DISCHARGE: 10/22/2018 PRINCIPAL DIAGNOSES: 1. Resolved enterococcal urinary tract infection. 2. Severe osteoarthritis, right knee, complicated by contusion, right knee, status post fall with deconditioning, slightly improved. 3. Paroxysmal atrial fibrillation. 4. Hypertension, well controlled. 5. Hypothyroidism. 6. Degenerative joint disease. 7. Chronic systolic congestive heart failure. COMPLICATIONS: None. ADVERSE REACTIONS: None. PROCEDURES: X-ray right knee. CONSULTATIONS: Therapy. HOSPITAL COURSE: Patient was admitted as a transfer from [facility], where he was admitted for weakness and diagnosed with enterococcal UTI. He finished his antibiotics. He has been working with therapy, but he has been having a waxing and waning course of progress. Repeat knee x-ray was done as I was not able to get the x-ray report from [facility]. It does not show any fractures but really end-stage DJD. His contusion over his right knee is improving. Patient feels that he may do better with therapy, if he works with the therapist he knows and whom he has been working with on an outpatient basis and apparently that therapist comes to [facility], so patient wants to be transferred there. Discussed with the charge nurse here, warehouse director and arrangements will be made. He will be discharged on his current medications. Heart healthy diet. Activity as tolerated. PT consult and he [facility] PHYSICAL EXAMINATION: VITAL SIGNS: On the day of discharge, he is afebrile, heart rate is 62, respirations 22, oxygen saturation 96% on room air, and blood pressure 131/72. CARDIOVASCULAR SYSTEM: S1-S2 plus. RESPIRATORY SYSTEMS: Normal vesicular breath sounds. ABDOMEN: Soft, nontender. Bowel sounds heard in all quadrants. EXTREMITIES: Without cyanosis or clubbing. Right knee with severe DJD, contusion with some superficial swelling, mainly in the medial aspect. LABORATORY: Done yesterday shows an H and H of 11 and 36.3, platelets of 296. Creatinine is 1.27 and GFR of 54. DISCHARGE MEDICATIONS: 1. Tylenol 500 q.4 p.r.n. 2. Eliquis 5 mg b.i.d. 3. Ecotrin 81 mg daily. 4. Carvedilol 3.125 mg b.i.d. 5. Lasix 20 mg daily. 6. Synthroid 200 mcg daily. 7. Zestril 5 mg daily. 8. Naproxen 500 mg daily. 9. Protonix 40 mg daily. 10. MiraLAX 17 g in 8 ounce of water daily. As stated, he will be followed by the medical center representative there. Patient was advised to call me with any questions or concerns. Total time spent on this discharge 35 minutes. Job ID: [id number]
[2018-10-23] MEDS: Aspirin 81 mg Enteric Coated Tablet PO SCH (09:28)
[2018-10-23] MEDS: Furosemide 20 MG TAB PO SCH (09:28)
[2018-10-23] MEDS: Naproxen 500 MG TAB PO SCH (09:28)
[2018-10-23] MEDS: Apixaban 5 MG TAB PO SCH ×2 (09:28→20:03)
[2018-10-23] MEDS: Carvedilol 3.125 MG TAB PO SCH ×2 (09:28→17:48)
[2018-10-23] MEDS: Polyethylene Glycol 3350 17 GM Packet PO SCH (09:39)
[2018-10-23] MEDS: Lisinopril 5 MG TAB PO SCH (20:03)
[2018-10-24] MEDS: Levothyroxine Sodium 100 MCG TAB PO SCH (05:07)
[2018-10-24] MEDS: Naproxen 500 MG TAB PO SCH (08:27)
[2018-10-24] MEDS: Carvedilol 3.125 MG TAB PO SCH ×2 (08:27→16:37)
[2018-10-24] MEDS: Apixaban 5 MG TAB PO SCH ×2 (08:27→21:03)
[2018-10-24] MEDS: Furosemide 20 MG TAB PO SCH (08:27)
[2018-10-24] MEDS: Aspirin 81 mg Enteric Coated Tablet PO SCH (08:27)
[2018-10-24] MEDS: Polyethylene Glycol 3350 17 GM Packet PO SCH (08:28)
[2018-10-24 19:07] LABS: #Lymphocytes 0.7 thou/uL (1.20-3.40); #Monocytes 1.2 thou/uL (0.11-0.59); #Neutrophils 14.8 thou/uL (1.40-6.50); %Basophils 0.3 % (0.0-1.0); %Lymphocytes 4.2 % (21.0-51.0); %Monocytes 7.1 % (0.0-10.0); %Neutrophils 88.4 % (42.0-75.0); Hemoglobin 11.4 g/dL (14.0-18.0); Mean Corpuscular HGB CONC 30.7 g/dL (32.0-36.0); Mean Platelet Volume 8.2 fL (7.4-10.4); Platelet Count 244 thou/uL (130-400); RBC Distribution Width 16.7 % (11.5-14.5); Red Blood Cell (RBC) Count 4.08 mill/uL (4.70-6.10); White Blood Cell (WBC) Count 16.8 thou/uL (4.8-10.8)
[2018-10-24 19:22] LABS: ALT (SGPT) 26 U/L (8-55); AST (SGOT) 26 U/L (5-34); Albumin 3.4 g/dL (3.4-4.8); Alkaline Phosphatase 160 U/L (40-150); Anion Gap 14 mmol/L (10-20); BUN (Urea Nitrogen) 53 mg/dL (8.4-25.7); Bilirubin, Total 0.9 mg/dL (0.2-1.2); Calc. Creatinine Clearance 52 mL/min (70-130); Calcium 9.6 mg/dL (7.8-10.44); Carbon Dioxide 26 mmol/L (23-31); Chloride 106 mmol/L (98-107); Estimated GFR-MDRD 46; Globulin 3.7 g/dL (2.4-3.5); Glucose 141 mg/dL (83-110); Potassium 4.3 mmol/L (3.5-5.1); Protein, Total 7.1 g/dL (5.8-8.1); Sodium 142 mmol/L (136-145)
--- NOTE | 2018-10-24 19:22 | PRG ---
DATE OF SERVICE: 10/24/2018 SUBJECTIVE: The patient has become more confused and weaker today, and he is having problems controlling his urine. When discussed possibility of recurrent urinary tract infection, he feels this is a definite possibility. He has had no fever or chills, but has had poor appetite and nausea, which are similar symptoms he had previously. OBJECTIVE: VITAL SIGNS: Temperature today is 97.2, pulse 76, respirations 18, O2 sats 94% on room air, and blood pressure 164/77. LUNGS: Clear. CARDIAC: Regular rhythm. ABDOMEN: Soft, nontender. SKIN/EXTREMITIES: Show no edema, clubbing, or cyanosis. There is tenderness and swelling over the right knee. ASSESSMENT: 1. Possible recurrent urinary tract infection and sepsis. 2. Stable degenerative joint disease, right knee. 3. Compensated chronic systolic heart failure. 4. Paroxysmal atrial fibrillation. No evidence of recurrence. PLAN: Urinalysis, CBC, comp met at this time as well as chest x-ray as the patient appears to be somewhat tachypneic. Job ID: [id number]
[2018-10-24 20:35] LABS: Bilirubin Negative (Negative); Blood, Urine Trace (Negative); Clarity Clear (Clear); Glucose, Urine (Dipstick) Negative (Negative); Leukocyte Large (Negative); Nitrite Negative (Negative); Protein, Urine (Dipstick) Negative (Neg-Trace); Specific Gravity, Urine 1.015 (1.005-1.030); Urobilinogen 0.2 mg/dL (0.2-1.0)
--- NOTE | 2018-10-24 20:36 | RAD ---
AP VIEW CHEST: 10/24/18 HISTORY: Tachypnea. AP view chest is obtained on 10/24/18. Comparison made to previous exam from 10/01/18. AP view chest demonstrates mild pulmonary vascular congestion. No evidence of effusions, pneumonia, o r pneumothorax seen. IMPRESSION: Unremarkable AP view chest. POS: [facility]
[2018-10-24 20:48] LABS: Urine Culture Reflex No No
[2018-10-24 20:49] LABS: Bacteria/HPF 4+ HPF (None Seen)
[2018-10-24] MEDS: Lisinopril 5 MG TAB PO SCH (21:03)
[2018-10-25] MEDS: Levothyroxine Sodium 100 MCG TAB PO SCH (05:15)
[2018-10-25 05:35] LABS: Hemoglobin 11.1 g/dL (14.0-18.0); Platelet Count 219 thou/uL (130-400)
[2018-10-25] MEDS: Apixaban 5 MG TAB PO SCH ×2 (08:42→21:10)
[2018-10-25] MEDS: Naproxen 500 MG TAB PO SCH (08:42)
[2018-10-25] MEDS: Furosemide 20 MG TAB PO SCH (08:42)
[2018-10-25] MEDS: Aspirin 81 mg Enteric Coated Tablet PO SCH (08:42)
[2018-10-25] MEDS: Carvedilol 3.125 MG TAB PO SCH ×2 (08:42→16:59)
[2018-10-25] MEDS: Amoxicillin/Potassium Clav 875 MG TAB PO SCH ×2 (08:42→21:10)
[2018-10-25] MEDS: Polyethylene Glycol 3350 17 GM Packet PO SCH (08:43)
--- NOTE | 2018-10-25 09:19 | PRG ---
DATE OF SERVICE: 10/23/[address] Ruddy Ayoub. SUBJECTIVE: The patient was to be transferred to [facility] for further therapy, but bed apparently is not available, so he is here today, having no complaints other than his pain in his right knee and cooperating with therapy. OBJECTIVE: VITAL SIGNS: Show blood pressure is 142/61, temperature is 98, pulse 63, respirations 18, and O2 sats 96% on room air. LUNGS: Clear. CARDIAC: Regular rhythm. ABDOMEN: Soft and nontender. SKIN/EXTREMITIES: Show swollen tender, right knee. ASSESSMENT: 1. Resolving contusion of the right knee, superimposed on stable degenerative joint disease in the right knee. 2. Compensated congestive heart failure. 3. No evidence of recurrent atrial fibrillation. PLAN: Continue PT and OT until bed available and transfer available to [facility]. Job ID: [id number]
--- NOTE | 2018-10-25 09:24 | PRG ---
DATE OF SERVICE: 10/25/[address] Ruddy Ayoub. SUBJECTIVE: The patient feels well with no sweats or chills and decreasing incontinence, dysuria. No change in mental status. OBJECTIVE: VITAL SIGNS: Temperature is 97.9, pulse 65, respirations 20, O2 sats 95% on room air, blood pressure 142/67. LUNGS: Clear. CARDIAC: Examination showed regular rhythm. ABDOMEN: Soft and nontender. EXTREMITIES: Right knee is swollen. Minimal tenderness LABORATORY FINDINGS: Laboratory, however, show white count of 16,800, hematocrit 37, hemoglobin 11, sodium 142, potassium 4.3, chloride 106, bicarb 26, BUN is up to 53, creatinine 1.44, glucose 141. Urinalysis shows 11-20 white cells, 4+ bacteria. ASSESSMENT: 1. New onset of urinary tract infection in a patient with recent significant enterococcal urinary tract infection. 2. Resolving contusion of right knee. 3. Compensated congestive heart failure. 4. Paroxysmal atrial fibrillation, no evidence recurrence. PLAN: 1. Start on Augmentin 875 twice daily after urine culture. 2. Continue PT/OT. 3. Continue to monitor for decompensation, congestive heart failure. 4. Repeat CBC in the a.m. Job ID: [id number]
[2018-10-25] MEDS: Lisinopril 5 MG TAB PO SCH (21:10)
[2018-10-26] MEDS: Levothyroxine Sodium 100 MCG TAB PO SCH (05:10)
[2018-10-26 05:52] VITALS: BMI 28.4
[2018-10-26 07:47] VITALS: BP 119/65; TEMP 97.7
[2018-10-26] MEDS: Amoxicillin/Potassium Clav 875 MG TAB PO SCH (08:26)
[2018-10-26] MEDS: Furosemide 20 MG TAB PO SCH (08:26)
[2018-10-26] MEDS: Carvedilol 3.125 MG TAB PO SCH (08:26)
[2018-10-26] MEDS: Naproxen 500 MG TAB PO SCH (08:26)
[2018-10-26] MEDS: Aspirin 81 mg Enteric Coated Tablet PO SCH (08:27)
[2018-10-26] MEDS: Apixaban 5 MG TAB PO SCH (08:27)
[2018-10-26] MEDS: Polyethylene Glycol 3350 17 GM Packet PO SCH (08:28)
--- NOTE | 2018-10-26 11:26 | PRG ---
DATE OF SERVICE: 10/23/2018 SUBJECTIVE: The patient is an 88-year-old white male, patient of Dr. Ruddy Ayoub, who was planning on being transferred to [facility] today, but apparently has not had a bed available and will be transferred in 2 days. He has a history of severe arthritis of the right knee, requiring physical therapy after a fall. He also has a history of resolved recent urinary tract infection with Enterococcus, stable hypertension and atrial fibrillation, and congestive heart failure. He has been doing well and we will continue on his Eliquis, carvedilol, Lasix, Synthroid, Zestril for the next several days until bed is ready. OBJECTIVE: VITAL SIGNS: Show blood pressure is 142/67, temperature is 98, pulse 63, respirations 18, O2 sats 96% on room air. LUNGS: Clear. CARDIAC: Shows regular rhythm. ABDOMEN: Soft and nontender with no masses or organomegaly. SKIN/EXTREMITIES: Display no edema, clubbing, or cyanosis. There is tenderness of the right knee with some mild swelling. ASSESSMENT: 1. Stable severe degenerative joint disease of the right knee. 2. Slowly improving deconditioning. 3. Resolved Enterococcus urinary tract infection. 4. Compensated systolic congestive heart failure, chronic. 5. Stable paroxysmal atrial fibrillation. PLAN: 1. Continue medications. 2. Continue to monitor for signs of decompensation congestive heart failure, atrial fibrillation. 3. Continue pain relief. 4. Plan to transfer to [facility] in 2 days. Job ID: [id number]
--- NOTE | 2018-10-26 13:49 | PRG ---
DATE OF SERVICE: 10/26/2018 SUBJECTIVE: Mr. Rosa still has not been transferred to [facility]. I just spoke with their bus assistant and he apparently has been approved. They did find a physician to follow him and their admission coordinator is going to be contacting the patient, so hopefully, he will be transferred today. Discharge medications will remain the same except he will need to be on an antibiotic for urinary tract infection. He is currently on empiric Augmentin. His urine culture is growing gram-negative rods. I will amend the discharge plan, med list, and everything else will all remain the same. OBJECTIVE: VITAL SIGNS: He is afebrile, heart rate is 68, respirations 16, oxygen saturation 95% on room air, blood pressure 119/65. CARDIOVASCULAR SYSTEM: S1-S2 plus. RESPIRATORY SYSTEM: Normal vesicular breath sounds. ABDOMEN: Soft, nontender. Bowel sounds heard in all quadrants. EXTREMITIES: Without cyanosis or clubbing. Right knee contusion is much improved and almost resolved. He still has some superficial swelling in the left knee area, possible effusion, but doubtful. IMPRESSION: 1. Paroxysmal atrial fibrillation. 2. Chronic systolic congestive heart failure. 3. Urinary tract infection with gram-negative rods. 4. Hypertension. 5. Hypothyroidism. 6. Osteoarthritis. 7. Deconditioning. PLAN: 1. Continue empiric Augmentin until urine culture is back. 2. All other medicines will remain the same. 3. Heart healthy diet. 4. Transfer to [facility] once accepted. 5. Continue Eliquis and Protonix. 6. Discussed with the patient and daughter in detail. All questions answered. For full details, please see discharge summary dictated on . Job ID: [id number]
== END 2018-10-26 15:00 | DRG 690 ==
LOC: NAV ACUTE 22:01 → UNDOADMIN 22:01
PROVIDERS: ADMIT Internal Medicine; ATTEND Internal Medicine
DX: N39.0 Urinary tract infection, site not specified (principal); I50.22 Chronic systolic (congestive) heart failure; E03.9 Hypothyroidism, unspecified; R53.81 Other malaise; B95.2 Enterococcus as the cause of diseases classified elsewhere; I11.0 Hypertensive heart disease with heart failure; K21.9 Gastro-esophageal reflux disease without esophagitis; I48.0 Paroxysmal atrial fibrillation; I87.2 Venous insufficiency (chronic) (peripheral); N28.9 Disorder of kidney and ureter, unspecified; S80.01XA Contusion of right knee, initial encounter; T50.2X5A Adverse effect of carbonic-anhydrase inhibitors, benzothiadiazides and other diuretics, initial encounter; R53.1 Weakness; M17.11 Unilateral primary osteoarthritis, right knee; Z96.652 Presence of left artificial knee joint; Z90.89 Acquired absence of other organs; Z88.0 Allergy status to penicillin; Z88.1 Allergy status to other antibiotic agents; Z79.01 Long term (current) use of anticoagulants; W19.XXXA Unspecified fall, initial encounter
CPT/HCPCS: 36415; 71045; 80048; 80053; 81001; 82565; 84443; 85014; 85018; 85025; 85049; 87077; 87086; 87186

== ENCOUNTER 2019-09-08 12:48 | Inpatient (IN) | payer MEDICARE ==
[2019-09-08] MEDS: Sodium Chloride 0.9% 1,000 ML IV SCH (18:32)
[2019-09-08 19:30] LABS: ALT (SGPT) 17 U/L (8-55); AST (SGOT) 27 U/L (5-34); Alkaline Phosphatase 66 U/L (40-110); Anion Gap 14 mmol/L (10-20); BUN (Urea Nitrogen) 65 mg/dL (8.4-25.7); Bilirubin, Total 0.5 mg/dL (0.2-1.2); Calc. Creatinine Clearance 34 mL/min (70-130); Carbon Dioxide 23 mmol/L (23-31); Chloride 107 mmol/L (98-107); Estimated GFR-MDRD 27; Globulin 2.6 g/dL (2.4-3.5); Glucose 129 mg/dL (83-110); Potassium 4.1 mmol/L (3.5-5.1); Protein, Total 5.6 g/dL (5.8-8.1); Sodium 140 mmol/L (136-145)
[2019-09-08 19:34] LABS: #Eosinphils 0.2 thou/uL (0.0-0.7); #Monocytes 0.9 thou/uL (0.11-0.59); #Neutrophils 9.3 thou/uL (1.40-6.50); %Basophils 0.4 % (0.0-1.0); %Eosinophils 1.8 % (0.0-10.0); %Lymphocytes 8.8 % (21.0-51.0); %Monocytes 7.7 % (0.0-10.0); %Neutrophils 81.3 % (42.0-75.0); Hemoglobin 8.7 g/dL (14.0-18.0); Mean Corpuscular HGB CONC 31.4 g/dL (32.0-36.0); Mean Corpuscular Hemoglobin 31.2 pg (27.0-31.0); Mean Corpuscular Volume 99.2 fL (78.0-98.0); Platelet Count 221 thou/uL (130-400); RBC Distribution Width 15.3 % (11.5-14.5); Red Blood Cell (RBC) Count 2.78 mill/uL (4.70-6.10); White Blood Cell (WBC) Count 11.4 thou/uL (4.8-10.8)
[2019-09-08 19:34] LABS: Bilirubin Negative (Negative); Blood, Urine Trace (Negative); Clarity Clear (Clear); Glucose, Urine (Dipstick) Negative (Negative); Leukocyte Large (Negative); Nitrite Negative (Negative); Protein, Urine (Dipstick) Negative (Neg-Trace); Urobilinogen 0.2 mg/dL (Less than 2)
[2019-09-08 19:35] LABS: Bacteria/HPF 3+ HPF (None Seen); RBC/HPF 0-3 HPF (0-3); Squamous Epithelial None Seen HPF (0-3); Urine Culture Reflex No No; WBC/HPF Greater than 50 HPF (0-3)
[2019-09-08] MEDS: Atorvastatin Calcium 20 MG TAB PO SCH (20:22)
[2019-09-08] MEDS: Apixaban 5 MG TAB PO SCH (20:22)
[2019-09-09] MEDS: Levothyroxine Sodium 100 MCG TAB PO SCH (05:30)
[2019-09-09] MEDS: Sodium Chloride 0.9% 1,000 ML IV SCH ×2 (06:21→20:47)
[2019-09-09] MEDS: Carvedilol 3.125 MG TAB PO SCH ×2 (07:56→16:53)
[2019-09-09] MEDS: Allopurinol 100 MG TAB PO SCH (08:34)
[2019-09-09] MEDS: Ciprofloxacin 500 MG TAB PO SCH (08:35)
[2019-09-09] MEDS: Apixaban 5 MG TAB PO SCH (08:35)
[2019-09-09] MEDS: Finasteride 5 MG TAB PO SCH (08:35)
[2019-09-09] MEDS: Aspirin 81 mg Enteric Coated Tablet PO SCH (08:36)
[2019-09-09] MEDS: Lisinopril 5 MG TAB PO SCH (08:36)
--- NOTE | 2019-09-09 13:57 | HP ---
CHIEF COMPLAINT: Urinary retention, possible UTI, and hypotension. BRIEF HISTORY: This is a very pleasant 89-year-old male, who is well known to me, was apparently at [facility] for urinary tract infection. He was treated appropriately and was noted to have some episodes of retention. He was transferred to [facility] for therapy and rehabilitation before following up with Urology for cystoscopy and some procedure to evaluate or treat the urinary retention. Unfortunately, he apparently declined while at [facility], and family was concerned. I talked to the son, and the patient apparently has been having significant urinary retention and is draining close to 1 to 2 L of urine when he is getting cath. He also apparently has been more weak. I advised him to come as a direct admit to the acute floor. While here, his systolic blood pressure was noted to be in the low 90s, and so, he was started on IV fluids. A Ospina was placed, and he drained close to 2 L. He is currently on Cipro, so we continued the ciprofloxacin, resumed his home medications, and this morning, he is feeling much better, tolerating his p.o. intake, and the plan is to stop his IV fluids and resume therapy while awaiting repeat culture and rescheduling his appointment with urologist. PAST MEDICAL HISTORY: 1. Hypothyroidism. 2. History of atrial fibrillation, on anticoagulation. 3. Hypertension. 4. Osteoarthritis. 5. History of MRSA. 6. Deconditioning. 7. Urinary retention diagnosed this time. PAST SURGICAL HISTORY: 1. Left total knee replacement, complicated by infection requiring multiple I and D's and antibiotic spacer placement. 2. Tonsillectomy. ALLERGIES: KEFLEX, BUT HE CAN TOLERATE PENICILLIN. PSYCHOSOCIAL HISTORY: No history of tobacco or IV drug abuse. Social alcohol intake. Ambulating with the help of his walker. FAMILY HISTORY: Noncontributory to current admission. REVIEW OF SYSTEMS: CARDIOVASCULAR: Denies any chest pain, shortness of breath, palpitations, PND, orthopnea, or pedal edema. RESPIRATORY: Denies any chronic cough, expectoration, or pleuritic-type chest pain. GASTROINTESTINAL: Denies any nausea, vomiting, diarrhea, constipation, hematemesis, melena, or hematochezia. GENITOURINARY: See history of presenting illness. CENTRAL NERVOUS SYSTEM: Generalized weakness, but no seizure activity. No fainting spells. MEDICATIONS: He will be continued on his Cipro 500 mg daily. Other medicines include his home medications, which are: 1. Tylenol 500 mg q.6 p.r.n. 2. Allopurinol 300 daily. 3. Eliquis 2.5 mg b.i.d. 4. Ecotrin 81 mg daily. 5. Lipitor 20 mg daily. 6. Carvedilol 3.125 mg b.i.d. 7. Proscar 5 mg daily. 8. Levoxyl 250 mcg daily. He was on 225 before. 9. Lisinopril 5 mg daily. 10. Pantoprazole 40 mg daily. He is on Cipro 500 daily because of his poor renal function at present. PHYSICAL EXAMINATION: GENERAL: Pleasant 89-year-old male, who is resting in bed and denies any complaints. He states that he feels much better compared to yesterday. VITAL SIGNS: He is afebrile, heart rate 64, respirations 16, oxygen saturation 95% on room air, blood pressure 107/53. HEENT: Normocephalic and atraumatic. Pupils are equally reactive to light and accommodation. Extraocular muscles are intact. NECK: No JVD, thyromegaly, cervical lymphadenopathy, or throat exudates. No carotid bruits. CARDIOVASCULAR: S1 and S2 plus. RESPIRATORY: Normal vesicular breath sounds. Occasional rhonchi. ABDOMEN: Soft and nontender. Bowel sounds heard in all quadrants. EXTREMITIES: Without cyanosis or clubbing. Trace edema. Chronic stasis changes. Evidence for osteoarthritis is present. Status post left total knee replacement. CENTRAL NERVOUS SYSTEM: Awake and responsive. Cranial nerves 2 through 12 intact. Generalized weakness. Otherwise, nonfocal. LABORATORY DATA: Laboratory values done yesterday on arrival show a white count of 11.4, H and H are 8.7 and 27.6 with macrocytosis, platelets are 221. Chemistry shows a sodium of 140, potassium 4.1, BUN and creatinine 65 and 2.29, blood sugar is 129. TSH is normal at 0.4743. Urinalysis shows greater than 50 wbc's, this was after catheterization; leukocyte esterase is large; bacteria 3+. IMPRESSION: 1. Urinary retention with possible persistent urinary tract infection. 2. Atrial fibrillation. 3. Osteoarthritis. 4. Hypothyroidism. 5. Gastroesophageal reflux disease. 6. Renal insufficiency. The last BUN and creatinine I have here are from March, where they were 42 and 1.23. PLAN: 1. Continue current medications. 2. Continue ciprofloxacin. 3. Continue IV fluids due to his elevated BUN and creatinine and possibly poor p.o. intake. 4. PT/OT eval and treat. 5. PlexiPulses. 6. Decubitus precautions. 7. Reschedule appointment to Urology. 8. Start Flomax in addition to his Proscar. 9. Discussed with the patient and nursing in detail. All questions answered. Job ID: [id number]
[2019-09-09] MEDS: Atorvastatin Calcium 20 MG TAB PO SCH (20:48)
[2019-09-09] MEDS: Tamsulosin HCl 0.4 MG CAP PO SCH (20:48)
[2019-09-09] MEDS: Apixaban 2.5 MG TAB PO SCH (20:48)
[2019-09-10 05:29] LABS: #Basophils 0.1 thou/uL (0.0-0.2); #Eosinphils 0.2 thou/uL (0.0-0.7); #Lymphocytes 0.9 thou/uL (1.20-3.40); #Monocytes 0.7 thou/uL (0.11-0.59); #Neutrophils 6.6 thou/uL (1.40-6.50); %Basophils 0.6 % (0.0-1.0); %Eosinophils 2.4 % (0.0-10.0); %Lymphocytes 10.4 % (21.0-51.0); %Monocytes 8.1 % (0.0-10.0); %Neutrophils 78.5 % (42.0-75.0); Mean Corpuscular HGB CONC 31.4 g/dL (32.0-36.0); Mean Corpuscular Hemoglobin 31.3 pg (27.0-31.0); Mean Corpuscular Volume 99.5 fL (78.0-98.0); Mean Platelet Volume 6.8 fL (7.4-10.4); Platelet Count 224 thou/uL (130-400); RBC Distribution Width 15.4 % (11.5-14.5); Red Blood Cell (RBC) Count 2.55 mill/uL (4.70-6.10); White Blood Cell (WBC) Count 8.4 thou/uL (4.8-10.8)
[2019-09-10 05:43] LABS: Anion Gap 10 mmol/L (10-20); BUN (Urea Nitrogen) 57 mg/dL (8.4-25.7); Calc. Creatinine Clearance 49 mL/min (70-130); Calcium 7.9 mg/dL (7.8-10.44); Carbon Dioxide 25 mmol/L (23-31); Chloride 112 mmol/L (98-107); Estimated GFR-MDRD 40; Glucose 108 mg/dL (83-110); Potassium 4.3 mmol/L (3.5-5.1); Sodium 143 mmol/L (136-145)
[2019-09-10] MEDS: Levothyroxine Sodium 100 MCG TAB PO SCH (06:12)
[2019-09-10] MEDS: Ciprofloxacin 500 MG TAB PO SCH (08:55)
[2019-09-10] MEDS: Finasteride 5 MG TAB PO SCH (08:55)
[2019-09-10] MEDS: Lisinopril 5 MG TAB PO SCH (08:55)
[2019-09-10] MEDS: Aspirin 81 mg Enteric Coated Tablet PO SCH (08:55)
[2019-09-10] MEDS: Carvedilol 3.125 MG TAB PO SCH ×2 (08:55→17:17)
[2019-09-10] MEDS: Apixaban 2.5 MG TAB PO SCH ×2 (08:56→20:33)
[2019-09-10] MEDS: Allopurinol 100 MG TAB PO SCH (08:56)
[2019-09-10] MEDS: Sodium Chloride 0.9% 1,000 ML IV SCH ×2 (09:50→20:32)
--- NOTE | 2019-09-10 11:20 | PRG ---
DATE OF SERVICE: 09/10/2019 SUBJECTIVE: Mr. Rosa is doing well and is up in his chair. He is waiting on therapy to come by and try to get him walking later this afternoon. He is tolerating his Ospina catheter. His secondary set up man is in the room. I advised him to drink plenty of non-caffeinated fluids. OBJECTIVE: VITAL SIGNS: He is afebrile. Heart rate 73, respirations 18, oxygen saturation 96% on room air, blood pressure 113/56. CARDIOVASCULAR SYSTEM: S1-S2 plus. RESPIRATORY SYSTEM: Normal vesicular breath sounds. ABDOMEN: Soft, nontender. Bowel sounds heard in all quadrants. EXTREMITIES: Without cyanosis or clubbing. CENTRAL NERVOUS SYSTEM: Generalized weakness otherwise nonfocal. LABORATORY DATA: White count is 8.4, H and H are 8 and 25.4. Chemistry shows a sodium of 143, potassium 4.3, BUN and creatinine are 57 and 1.62. IMPRESSION: 1. Resolving acute renal failure. 2. Resolved urinary retention. 3. Paroxysmal atrial fibrillation. 4. Chronic diastolic congestive heart failure. 5. Osteoarthritis. 6. Hypothyroidism. 7. Deconditioning. 8. Urinary retention. PLAN: 1. Continue current medications and IV fluids. 2. Ospina catheter care. 3. Nutritional support. 4. Physical therapy. 5. Recheck BMP in the morning. 6. Continue ciprofloxacin. 7. Await urinalysis and urine culture. 8. Schedule appointment with Urology for possible [facility] therapy. Discussed with the patient and caregiver in detail. All questions answered. Job ID: [id number]
[2019-09-10] MEDS: Acetaminophen 500 MG TAB PO PRN ×2 (14:05→20:33)
[2019-09-10] MEDS: Atorvastatin Calcium 20 MG TAB PO SCH (20:33)
[2019-09-10] MEDS: Tamsulosin HCl 0.4 MG CAP PO SCH (20:33)
[2019-09-11] MEDS: Levothyroxine Sodium 100 MCG TAB PO SCH (05:10)
[2019-09-11 05:48] LABS: Anion Gap 11 mmol/L (10-20); BUN (Urea Nitrogen) 49 mg/dL (8.4-25.7); Calc. Creatinine Clearance 60 mL/min (70-130); Calcium 7.9 mg/dL (7.8-10.44); Carbon Dioxide 23 mmol/L (23-31); Chloride 113 mmol/L (98-107); Estimated GFR-MDRD 51; Glucose 104 mg/dL (83-110); Potassium 4.2 mmol/L (3.5-5.1); Sodium 143 mmol/L (136-145)
[2019-09-11] MEDS: Allopurinol 100 MG TAB PO SCH (08:48)
[2019-09-11] MEDS: Carvedilol 3.125 MG TAB PO SCH ×2 (08:48→17:33)
[2019-09-11] MEDS: Ciprofloxacin 500 MG TAB PO SCH (08:48)
[2019-09-11] MEDS: Finasteride 5 MG TAB PO SCH (08:49)
[2019-09-11] MEDS: Aspirin 81 mg Enteric Coated Tablet PO SCH (08:49)
[2019-09-11] MEDS: Apixaban 2.5 MG TAB PO SCH ×2 (08:49→20:43)
[2019-09-11] MEDS: Lisinopril 5 MG TAB PO SCH (08:55)
[2019-09-11] MEDS: Acetaminophen 500 MG TAB PO PRN (09:00)
[2019-09-11] MEDS: Sodium Chloride 0.9% 1,000 ML IV SCH (12:43)
--- NOTE | 2019-09-11 14:32 | PRG ---
DATE OF SERVICE: 09/11/2019 SUBJECTIVE: Mr. Rosa is doing the same. Denies any complaints, tolerating his IV fluids. Denies any chest pain or shortness of breath. No family at bedside. I reviewed therapy notes from yesterday. He was max assist for chair to bed, stand to sit, sit to supine. OBJECTIVE: VITAL SIGNS: He is afebrile. Heart rate is 65, respirations 20, oxygen saturation 93% on room air, blood pressure 128/59. CARDIOVASCULAR SYSTEM: S1 and S2 plus. RESPIRATORY SYSTEM: Normal vesicular breath sounds. ABDOMEN: Soft, nontender. Bowel sounds heard in all quadrants. EXTREMITIES: Without cyanosis or clubbing. CENTRAL NERVOUS SYSTEM: Generalized weakness, otherwise nonfocal. LABORATORY VALUES: Sodium 143, potassium 4.2, BUN and creatinine are 49 and 1.32. IMPRESSION: 1. Dehydration, resolving. 2. Renal insufficiency, likely due to dehydration. 3. Hypertension. 4. Chronic diastolic congestive heart failure. 5. Paroxysmal atrial fibrillation. 6. Hypothyroidism. 7. Osteoarthritis. 8. Significant deconditioning. 9. Urinary retention, requiring Ospina catheter. PLAN: 1. Continue current medications. 2. Continue IV fluids. 3. Physical Therapy. 4. DVT prophylaxis - the patient is on Eliquis. 5. Decubitus precautions. 6. Nutritional support. 7. Recheck BMP in the morning. 8. Has appointment with Urology on the for evaluation of his urinary obstruction. 9. Ospina catheter care. 10. Discussed with the patient and nursing in detail. All questions answered. Job ID: [id number]
[2019-09-11] MEDS: Atorvastatin Calcium 20 MG TAB PO SCH (20:42)
[2019-09-11] MEDS: Tamsulosin HCl 0.4 MG CAP PO SCH (20:42)
[2019-09-11] MEDS: Nitrofurantoin Monohyd/M-Cryst 100 MG CAP PO SCH (20:43)
[2019-09-12] MEDS: Sodium Chloride 0.9% 1,000 ML IV SCH ×2 (01:15→14:40)
[2019-09-12 05:27] LABS: Anion Gap 11 mmol/L (10-20); BUN (Urea Nitrogen) 42 mg/dL (8.4-25.7); Calc. Creatinine Clearance 67 mL/min (70-130); Calcium 8.1 mg/dL (7.8-10.44); Carbon Dioxide 21 mmol/L (23-31); Chloride 113 mmol/L (98-107); Estimated GFR-MDRD 59; Glucose 109 mg/dL (83-110); Potassium 4.4 mmol/L (3.5-5.1); Sodium 141 mmol/L (136-145)
[2019-09-12] MEDS: Levothyroxine Sodium 100 MCG TAB PO SCH (06:01)
[2019-09-12] MEDS: Nitrofurantoin Monohyd/M-Cryst 100 MG CAP PO SCH ×2 (09:38→20:24)
[2019-09-12] MEDS: Lisinopril 5 MG TAB PO SCH (09:39)
[2019-09-12] MEDS: Allopurinol 100 MG TAB PO SCH (09:39)
[2019-09-12] MEDS: Finasteride 5 MG TAB PO SCH (09:39)
[2019-09-12] MEDS: Aspirin 81 mg Enteric Coated Tablet PO SCH (09:40)
[2019-09-12] MEDS: Apixaban 2.5 MG TAB PO SCH ×2 (09:40→20:24)
[2019-09-12] MEDS: Carvedilol 3.125 MG TAB PO SCH ×2 (09:40→17:29)
[2019-09-12] MEDS ORDERED: Sodium Chloride 0.9% 10 ML ONE (14:24)
--- NOTE | 2019-09-12 15:39 | PRG ---
DATE OF SERVICE: 09/12/2019 SUBJECTIVE: Mr. Rosa is resting comfortably and denies any complaints. He states that he is feeling better and seems like stronger. I advised him that we had to change his antibiotic as soon as his organism causing the bladder infection was resistant to the ciprofloxacin. His renal functions are almost back to normal and I advised him that we will stop his IV fluids after his current bag is done. I also informed him that appointment with his urologist has been scheduled for the . OBJECTIVE: VITAL SIGNS: He is afebrile, heart rate 72, respirations 20, oxygen saturation 94% on room air, and blood pressure 117/58. CARDIOVASCULAR SYSTEM: S1 and S2 plus. RESPIRATORY SYSTEM: Normal vesicular breath sounds. ABDOMEN: Soft and nontender. Bowel sounds heard in all quadrants. EXTREMITIES: Without cyanosis, clubbing. CENTRAL NERVOUS SYSTEM: Generalized weakness, otherwise nonfocal. LABORATORY VALUE: Shows a sodium of 141, potassium 4.4, and BUN and creatinine are 42 and 1.17. IMPRESSION: 1. Resolved renal insufficiency caused by dehydration. 2. Urinary tract infection with Escherichia coli. 3. Urinary retention, requiring Ospina catheter. 4. Hypertension. 5. Chronic diastolic congestive heart failure. 6. Hypothyroidism. 7. Atrial fibrillation. 8. Deconditioning. PLAN: 1. Stop IV fluids after current bag is done. 2. Continue Macrobid for a total of 14 days. 3. Heart healthy diet. 4. Physical therapy. 5. Ospina catheter care. 6. DVT prophylaxis-he is on Eliquis. 7. Decubitus precautions. 8. Stress ulcer prophylaxis. 9. Follow up with Urology. 10. Discussed with the patient in detail. All questions were answered. Job ID: [id number]
[2019-09-12 19:42] VITALS: BMI 29.0
[2019-09-12] MEDS: Tamsulosin HCl 0.4 MG CAP PO SCH (20:24)
[2019-09-12] MEDS: Atorvastatin Calcium 20 MG TAB PO SCH (20:24)
[2019-09-13] MEDS: Levothyroxine Sodium 100 MCG TAB PO SCH (05:32)
[2019-09-13] MEDS: Carvedilol 3.125 MG TAB PO SCH ×2 (08:40→17:00)
[2019-09-13] MEDS: Allopurinol 100 MG TAB PO SCH (08:40)
[2019-09-13] MEDS: Nitrofurantoin Monohyd/M-Cryst 100 MG CAP PO SCH (08:41)
[2019-09-13] MEDS: Finasteride 5 MG TAB PO SCH (08:41)
[2019-09-13] MEDS: Apixaban 2.5 MG TAB PO SCH (08:41)
[2019-09-13] MEDS: Aspirin 81 mg Enteric Coated Tablet PO SCH (08:41)
[2019-09-13] MEDS: Lisinopril 5 MG TAB PO SCH (09:14)
[2019-09-13 12:04] LABS: #Basophils 0.1 thou/uL (0.0-0.2); #Eosinphils 0.1 thou/uL (0.0-0.7); #Lymphocytes 0.5 thou/uL (1.20-3.40); #Monocytes 0.9 thou/uL (0.11-0.59); #Neutrophils 7.3 thou/uL (1.40-6.50); %Basophils 0.8 % (0.0-1.0); %Eosinophils 0.7 % (0.0-10.0); %Monocytes 9.6 % (0.0-10.0); %Neutrophils 82.9 % (42.0-75.0); Hemoglobin 8.4 g/dL (14.0-18.0); Mean Corpuscular Hemoglobin 30.6 pg (27.0-31.0); Mean Corpuscular Volume 98.6 fL (78.0-98.0); Platelet Count 294 thou/uL (130-400); RBC Distribution Width 15.5 % (11.5-14.5); Red Blood Cell (RBC) Count 2.76 mill/uL (4.70-6.10); White Blood Cell (WBC) Count 8.8 thou/uL (4.8-10.8)
--- NOTE | 2019-09-13 12:09 | RAD ---
RADIOGRAPH CHEST 1 VIEW: DATE: 09/13/2019 HISTORY: 89-year-old male with cough and chest congestion FINDINGS: Lungs are hypoinflated, and therefore the study is somewhat limited. The thoracic aorta is tortuous a nd ectatic. There is no evidence of airspace density, pulmonary edema, or pneumothorax. The lateral costophrenic angles are not effaced. IMPRESSION: 1) No acute pulmonary findings. 2) ectasia of thoracic aorta.
[2019-09-13 12:18] LABS: Anion Gap 10 mmol/L (10-20); BUN (Urea Nitrogen) 32 mg/dL (8.4-25.7); Calc. Creatinine Clearance 84 mL/min (70-130); Calcium 8.1 mg/dL (7.8-10.44); Carbon Dioxide 22 mmol/L (23-31); Chloride 112 mmol/L (98-107); Estimated GFR-MDRD 76; Glucose 122 mg/dL (83-110); Potassium 4.3 mmol/L (3.5-5.1); Sodium 140 mmol/L (136-145)
--- NOTE | 2019-09-13 13:12 | PRG ---
DATE OF SERVICE: 09/13/2019 SUBJECTIVE: Mr. Rosa is up in bed, eating lunch. Speech Therapy is evaluating him. He apparently had an episode of hypoxia this morning when getting up and working with therapy. He is now on 2 L of oxygen, and his oxygen saturation is 96%. OBJECTIVE: VITAL SIGNS: Blood pressure is 142/68, heart rate is 83. CARDIOVASCULAR SYSTEM: S1 and S2 plus. RESPIRATORY SYSTEM: Normal vesicular breath sounds with decreased air entry in the bases. ABDOMEN: Soft, nontender. Bowel sounds heard in all quadrants. EXTREMITIES: Without cyanosis or clubbing. CENTRAL NERVOUS SYSTEM: Generalized weakness, otherwise nonfocal. LABORATORY DATA: Laboratory values done this morning show a white count of 8.8, H and H are 8.4 and 27.2. Sodium 140, potassium 4.3, BUN and creatinine . BNP is elevated at 461.2. IMPRESSION: 1. Acute hypoxemic respiratory failure, possibly due to some fluid overload. 2. Atrial fibrillation. 3. Chronic diastolic congestive heart failure. 4. Osteoarthritis. 5. Hypothyroidism. 6. Gastroesophageal reflux disease. 7. Urinary retention, requiring Ospina catheter. 8. Significant deconditioning. 9. Resolving urinary tract infection. PLAN: 1. Continue current medications. 2. Titrate oxygen. 3. Incentive spirometry. 4. One dose of Lasix. 5. Recheck labs in the morning. 6. DVT prophylaxis - The patient is on Eliquis. 7. Decubitus precautions. 8. Discussed with the patient and caregiver. Also, of note, his chest x-ray does not show any congestion. Job ID: [id number]
[2019-09-13 16:41] VITALS: BP 118/58; TEMP 98
--- NOTE | 2019-09-15 00:31 | PQF ---
[employer] T[employer] Engineer [employer] AMBROSE Bryant ANDRZEJ MCKENZIE MD [id number] CLINICAL DOCUMENTATION CLARIFICATION FORM: POST DISCHARGE Addendum to original discharge summary date: ____ Late entry note date: __ DATE: 09/15/2019 ATTN:ANDRZEJ MCKENZIE MD Please exercise your independent, professional judgment in responding to the clarification form. Clinical indicators are provided on the bottom of this form for your review Please check appropriate box(s): Conflicting documentation was noted in the Medical Record, please clarify if patient is being treated/monitored for: [ ] Acute renal failure [ x ] Acute renal insufficiency [ ] Other diagnosis [ ] Unable to determine In addition, please specify: Present on Admission (POA): [ x] Yes [ ] No [ ] Unable to determine For continuity of documentation, please document condition throughout progress notes and discharge summary. Thank You. CLINICAL INDICATORS - SIGNS / SYMPTOMS/ LABS Acute renal failure - Documented in PNs on 09/10 by ANDRZEJ MCKENZIE MD Elevated Creatinine 2.29 on 09/08 , 1.62 on 09/10 and 1.32 on 09/11 - Documented in Laboratory Elevated BUN 65 on 09/08 , 57 on 09/10 , 49 on 09/11 and 32 on 09/13 - Documented in Laboratory Urinary retention - Documented in H&P on 09/08 by ANDRZEJ MCKENZIE MD Renal Insufficiency - Documented in H&P on 09/08 by ANDRZEJ MCKENZIE MD RISK FACTORS UTI - Documented in PNs on 09/10 by ANDRZEJ MCKENZIE MD Chronic Diastolic CHF - Documented in PNs on 09/10 by ANDRZEJ MCKENZIE MD Hypotension TREATMENT Continue current medication and IV fluids - Documented in PNs on 09/10 by ANDRZEJ MCKENZIE MD Continue IV fluid - Documented in H&P on 09/08 by ANDRZEJ MCKENZIE MD [employer] T[employer] Engineer [employer] [id number] [employer]. All Rights Reserved Joshua [email or web address] [not provided] (This form is maintained as a part of the permanent medical record) [facility]
== END 2019-09-13 17:20 | disposition critical access hospital (66) | DRG 689 ==
LOC: NAV ACUTE 14:55 → UNDOADMIN 14:55 → NAV ACUTE 14:56
PROVIDERS: ADMIT Internal Medicine; ATTEND Internal Medicine
DX: N39.0 Urinary tract infection, site not specified (principal); J96.01 Acute respiratory failure with hypoxia; I50.32 Chronic diastolic (congestive) heart failure; R53.1 Weakness; E03.9 Hypothyroidism, unspecified; M19.91 Primary osteoarthritis, unspecified site; R53.81 Other malaise; Z96.652 Presence of left artificial knee joint; K21.9 Gastro-esophageal reflux disease without esophagitis; I11.0 Hypertensive heart disease with heart failure; I48.0 Paroxysmal atrial fibrillation; E86.0 Dehydration; Z66 Do not resuscitate; Z90.89 Acquired absence of other organs; Z88.0 Allergy status to penicillin; Z88.8 Allergy status to other drugs, medicaments and biological substances; Z79.899 Other long term (current) drug therapy; E87.70 Fluid overload, unspecified; N28.9 Disorder of kidney and ureter, unspecified
CPT/HCPCS: 36415; 71045; 80048; 80053; 81001; 83880; 84443; 85025; 87077; 87086; 87186; J7050

== ENCOUNTER 2019-09-13 18:07 | Inpatient (IN) | payer MEDICARE ==
[2019-09-13] MEDS ORDERED: Acetaminophen 500 MG TAB PO PRN (20:15)
[2019-09-13] MEDS: Nitrofurantoin Monohyd/M-Cryst 100 MG CAP PO SCH (21:21)
[2019-09-13] MEDS: Apixaban 2.5 MG TAB PO SCH (21:21)
[2019-09-13] MEDS: Tamsulosin HCl 0.4 MG CAP PO SCH (21:21)
[2019-09-13] MEDS: Atorvastatin Calcium 20 MG TAB PO SCH (21:21)
[2019-09-14] MEDS: Levothyroxine Sodium 125 MCG TAB PO SCH (06:02)
[2019-09-14] MEDS: Nitrofurantoin Monohyd/M-Cryst 100 MG CAP PO SCH ×2 (08:57→20:44)
[2019-09-14] MEDS: Lisinopril 5 MG TAB PO SCH (08:57)
[2019-09-14] MEDS: Carvedilol 3.125 MG TAB PO SCH ×2 (08:58→17:39)
[2019-09-14] MEDS: Allopurinol 100 MG TAB PO SCH (08:58)
[2019-09-14] MEDS: Finasteride 5 MG TAB PO SCH (08:58)
[2019-09-14] MEDS: Apixaban 2.5 MG TAB PO SCH ×2 (08:58→20:44)
[2019-09-14] MEDS: Aspirin 81 mg Enteric Coated Tablet PO SCH (08:59)
[2019-09-14] MEDS ORDERED: FLU VACC QS2019-20(6MOS UP)/PF 60 MCG/0.5 ML SYRINGE IM ONE (09:00)
[2019-09-14] MEDS ORDERED: Torsemide 20 MG TAB PO SCH (13:15)
--- NOTE | 2019-09-14 13:36 | PRG ---
DATE OF SERVICE: 09/14/2019 SUBJECTIVE: Mr. Rosa is resting in bed and denies any complaints. He apparently did not participate with therapy this morning. He also has not been using his incentive spirometer in the right way. I encouraged him to participate with therapy, so he can get stronger and go home. His bar pilot is in the room. I also advised her to have him use the incentive spirometry at least 10 times an hour. His BNP was slightly elevated yesterday and even though his chest x-ray was clear and his lungs sounded good, he is still requiring oxygen, so we will give him 20 mg of Demadex 1 time dose. OBJECTIVE: VITAL SIGNS: He is afebrile. Heart rate 68, respirations 16, oxygen saturation 96% on 2 L, and blood pressure 136/60. CARDIOVASCULAR: S1, S2 plus. RESPIRATORY: Normal vesicular breath sounds. ABDOMEN: Soft, nontender. Bowel sounds heard in all quadrants. EXTREMITIES: Without cyanosis or clubbing. Chronic stasis dermatitis, DJD present. He also has a sacral decubitus stage II. Plan is to get him on a low air loss mattress and Wound Care to address the wound. IMPRESSION: 1. Resolving urinary tract infection with Escherichia coli. 2. Resolved dehydration. 3. Chronic diastolic congestive heart failure. 4. Hypothyroidism. 5. Atrial fibrillation. 6. Significant deconditioning. 7. Osteoarthritis. 8. Urinary retention. PLAN: 1. Continue current medications, but one dose of Demadex. 2. Low air loss mattress and wound care. 3. Encourage the patient to participate with therapy. 4. Incentive spirometry. 5. Titrate oxygen. 6. DVT prophylaxis - he is on Eliquis. 7. Decubitus precautions. 8. Stress ulcer prophylaxis. 9. Discussed with the patient, bar pilot, and nursing in detail. All questions answered. Job ID: [id number]
[2019-09-14] MEDS: Atorvastatin Calcium 20 MG TAB PO SCH (20:44)
[2019-09-14] MEDS: Tamsulosin HCl 0.4 MG CAP PO SCH (20:44)
[2019-09-15 05:52] LABS: Anion Gap 14 mmol/L (10-20)
[2019-09-15 06:05] LABS: BUN (Urea Nitrogen) 42 mg/dL (8.4-25.7); Calc. Creatinine Clearance 50 mL/min (70-130); Calcium 8.6 mg/dL (7.8-10.44); Carbon Dioxide 24 mmol/L (23-31); Chloride 110 mmol/L (98-107); Estimated GFR-MDRD 43; Glucose 103 mg/dL (83-110); Potassium 4.5 mmol/L (3.5-5.1); Sodium 143 mmol/L (136-145)
[2019-09-15] MEDS: Levothyroxine Sodium 125 MCG TAB PO SCH (06:09)
[2019-09-15] MEDS: Allopurinol 100 MG TAB PO SCH (10:12)
[2019-09-15] MEDS: Aspirin 81 mg Enteric Coated Tablet PO SCH (10:13)
[2019-09-15] MEDS: Apixaban 2.5 MG TAB PO SCH ×2 (10:13→20:06)
[2019-09-15] MEDS: Nitrofurantoin Monohyd/M-Cryst 100 MG CAP PO SCH ×2 (10:14→20:06)
[2019-09-15] MEDS: Lisinopril 5 MG TAB PO SCH (10:15)
[2019-09-15] MEDS: Finasteride 5 MG TAB PO SCH (10:16)
[2019-09-15] MEDS: Carvedilol 3.125 MG TAB PO SCH ×2 (10:16→17:27)
--- NOTE | 2019-09-15 12:43 | PRG ---
DATE OF SERVICE: 09/15/2019 SUBJECTIVE: Mr. Rosa is up in his chair. He apparently had to be forced to participate with therapy. He is off his oxygen. He is eating his food. Again, advised him the importance of participating with therapy so that he can get stronger. His caretakers are in the room. OBJECTIVE: VITAL SIGNS: He is afebrile. Heart rate 74, respirations 20, blood pressure 142/61. Do not have current oxygen saturation documented, but he is on room air. CARDIOVASCULAR: S1 and S2 plus. RESPIRATORY: Normal vesicular breath sounds. ABDOMEN: Soft and nontender. Bowel sounds heard in all quadrants. EXTREMITIES: Without cyanosis or clubbing. Chronic venous stasis, osteoarthritis present. CENTRAL NERVOUS SYSTEM: Generalized weakness, otherwise nonfocal. LABORATORY DATA: Laboratory values done this morning shows a sodium of 143, potassium 4.5, BUN and creatinine are 42 and 1.53. TSH is 0.5084. IMPRESSION: 1. Atrial fibrillation. 2. Hypothyroidism. 3. Osteoarthritis. 4. Chronic diastolic congestive heart failure. 5. Urinary retention, requiring Ospina catheter. 6. Resolving Escherichia coli urinary tract infection. 7. Significant deconditioning. PLAN: 1. Continue current medications. 2. Heart healthy diet. 3. DVT prophylaxis-he is on Eliquis. 4. Monitor heart rate and rhythm. 5. Monitor respiratory status. 6. Physical therapy encouraged to patient. 7. Possible depression. Resume Celexa. He was on it while he was in the hospital in the past. 8. Discussed with the patient, caregivers, and son in detail. All questions answered. Job ID: [id number]
--- NOTE | 2019-09-15 18:02 | RAD ---
Exam: Chest one view HISTORY:Increased chest congestion Comparison: 09/13/2019 FINDINGS: Cardiac silhouette: Normal Aorta: Atherosclerosis Pulmonary vessels: Normal Costophrenic angles: Small right-sided pleural effusion. LUNGS: Diminished lung volumes, likely due to a poor inspiratory effort. Chronic lung parenchymal nayan nges are noted. Superimposed edema and/or interstitial infiltrate cannot be excluded. Pneumothorax: None Osseous abnormalities: None IMPRESSION: 1. Atherosclerosis. 2. Diminished lung volumes with chronic lung parenchymal changes. Superimposed edema and/or infiltrat e cannot be excluded.
[2019-09-15] MEDS ORDERED: Torsemide 20 MG TAB PO SCH (18:45)
[2019-09-15] MEDS: Atorvastatin Calcium 20 MG TAB PO SCH (20:06)
[2019-09-15] MEDS: Tamsulosin HCl 0.4 MG CAP PO SCH (20:06)
[2019-09-15] MEDS ORDERED: Citalopram 10 MG TAB PO SCH (21:00)
[2019-09-16] MEDS: Levothyroxine Sodium 125 MCG TAB PO SCH (05:25)
[2019-09-16 05:56] LABS: Anion Gap 14 mmol/L (10-20); BUN (Urea Nitrogen) 50 mg/dL (8.4-25.7); Calc. Creatinine Clearance 50 mL/min (70-130); Calcium 8.8 mg/dL (7.8-10.44); Carbon Dioxide 26 mmol/L (23-31); Chloride 108 mmol/L (98-107); Estimated GFR-MDRD 43; Glucose 141 mg/dL (83-110); Potassium 4.8 mmol/L (3.5-5.1); Sodium 143 mmol/L (136-145)
[2019-09-16] MEDS: Lisinopril 5 MG TAB PO SCH (08:38)
[2019-09-16] MEDS: Carvedilol 3.125 MG TAB PO SCH ×2 (08:38→18:16)
[2019-09-16] MEDS: Aspirin 81 mg Enteric Coated Tablet PO SCH (08:39)
[2019-09-16] MEDS: Allopurinol 100 MG TAB PO SCH (08:39)
[2019-09-16] MEDS: Nitrofurantoin Monohyd/M-Cryst 100 MG CAP PO SCH (08:40)
[2019-09-16] MEDS: Finasteride 5 MG TAB PO SCH (08:40)
[2019-09-16] MEDS: Apixaban 2.5 MG TAB PO SCH (08:41)
[2019-09-16] MEDS ORDERED: Sodium Chloride 0.9% 10 ML ONE ×2 (09:20→09:55)
[2019-09-16] MEDS ORDERED: Furosemide 20 MG/2 ML VIAL SLOW IVP SCH (09:45)
[2019-09-16 09:54] LABS: Lactic Acid 0.9 mmol/L (0.5-2.2)
[2019-09-16 10:00] LABS: Anion Gap 17 mmol/L (10-20); BUN (Urea Nitrogen) 52 mg/dL (8.4-25.7); CK (CPK) 127 U/L (30-200); Calc. Creatinine Clearance 48 mL/min (70-130); Calcium 8.9 mg/dL (7.8-10.44); Carbon Dioxide 24 mmol/L (23-31); Chloride 108 mmol/L (98-107); Estimated GFR-MDRD 41; Glucose 127 mg/dL (83-110); Potassium 4.9 mmol/L (3.5-5.1); Sodium 144 mmol/L (136-145)
[2019-09-16 10:02] LABS: Hemoglobin 9.1 g/dL (14.0-18.0); MDiff Complete? YES; Mean Corpuscular Hemoglobin 30.6 pg (27.0-31.0); Mean Platelet Volume 6.5 fL (7.4-10.4); Platelet Count 361 thou/uL (130-400); RBC Distribution Width 16.4 % (11.5-14.5); Red Blood Cell (RBC) Count 2.97 mill/uL (4.70-6.10); White Blood Cell (WBC) Count 8.2 thou/uL (4.8-10.8)
[2019-09-16 10:03] LABS: Anisocytosis SLIGHT = 6-15 cells (100X) (0-5/hpf); Band 10 % (5-11); Hypochromia SLIGHT = 6-15 cells (100X) (0-5/hpf); Lymphocytes 4 % (21-51); Monocytes 11 % (0-10); Neutrophil 75 % (42-75); Ovalocytes SLIGHT = 2-5 cells (100X) (0-1/hpf); Platelet Morphology Comment Appears Adequate
[2019-09-16 10:09] LABS: CKMB 1.7 ng/mL (0-6.6); Troponin I 0.031 ng/mL (< 0.028)
[2019-09-16] MEDS ORDERED: Morphine 4 MG/ML VIAL SLOW IVP PRN (13:23)
[2019-09-16] MEDS ORDERED: Lorazepam 2 MG/ML VIAL SLOW IVP PRN (13:23)
--- NOTE | 2019-09-16 13:50 | PRG ---
DATE OF SERVICE: 09/16/2019 SUBJECTIVE: Mr. Rosa is less responsive and very difficult to arouse. He has minimal response to sternal rub. This started this morning. IV line was started. IV access was placed, and he was given 20 of Lasix IV. Stat labs done, which do not show any changes. His lactic acid level is normal. Troponins are negative. Chest x-ray does not show any infiltrate. White count is normal. His body is just most likely shutting down, and son was made aware. He wants just comfort care. Informed nursing to hold all therapy, hold all p.o. medications. Morphine and Ativan ordered IV as needed. OBJECTIVE: VITAL SIGNS: He is afebrile, heart rate 94, respirations 28, oxygen saturation 93% on a nonrebreather. Blood pressure this morning was 133/61. CARDIOVASCULAR: S1 and S2 plus. RESPIRATORY: Normal vesicular breath sounds. Transmitted sounds from his upper airways. ABDOMEN: Soft and nontender. EXTREMITIES: Without cyanosis or clubbing. LABORATORY DATA: Sodium 144, potassium 4.9, BUN and creatinine are 52 and 1.61. Blood sugar was 127. Lactic acid was 0.9. BNP was 258. Troponin was 0.031. White count is 8.2, H and H are 9.1 and 30.2, and platelet count of 361. IMPRESSION: 1. Respiratory failure, likely multi-system shutdown. 2. History of atrial fibrillation. 3. Hypothyroidism. 4. Osteoarthritis. 5. Urinary retention, requiring Ospina catheter. 6. Resolving urinary tract infection. PLAN: Continue comfort care. Discontinue all labs. Hold all therapy. Hold all p.o. medications. IV morphine 2 mg IV q.1 hour p.r.n. shortness of breath or air hunger and Ativan 1 mg IV q.1 hour p.r.n. agitation. Son, who is the medical power of collections attorney, is aware and agrees to the plan. Job ID: [id number]
[2019-09-17 00:23] VITALS: BP 98/45; TEMP 96.1
--- NOTE | 2019-09-18 03:04 | DIS ---
DATE OF ADMISSION: 09/13/2019 DATE OF DISCHARGE: 09/17/2019 PRINCIPAL DIAGNOSIS: Cardiorespiratory failure. SECONDARY DIAGNOSES: 1. Atrial fibrillation. 2. Hypothyroidism. 3. Osteoarthritis. 4. Chronic diastolic congestive heart failure. 5. Urinary retention. 6. Deconditioning. COMPLICATIONS: None. ADVERSE REACTIONS: None. PROCEDURES: None. CONSULTATIONS: None. HOSPITAL COURSE: The patient was admitted as a transfer from [facility] to Acute Care Facility for dehydration and deconditioning. He had to have a Ospina catheter placed. He was started on IV fluids due to hypotension and clinical dehydration. His creatinine was . He responded well to IV fluid resuscitation and was slowly weaned off the IV fluids. He was participating with therapy. His urine culture came back positive for UTI with E coli resistant to ciprofloxacin. He was switched to Macrobid. He was transferred to skilled bed for continue therapy. Unfortunately, couple of days into the transfer, he started declining with no obvious source. His cardiac enzymes were negative. Chest x-ray continued to remain stable and laboratory values remained stable. It was basically his just body shutting down and family was comfortable with the current plan of care and keeping him comfortable. They did not want any aggressive measures. He was a DNR, so he was kept comfortable. His p.o. medicines were held since he was unresponsive and his therapy was held. He peacefully this morning. He is not a candidate for organ donation. Body was released to home. For full details, please see chart. Job ID: [id number]
== END 2019-09-17 06:23 | disposition expired | DRG 640 ==
LOC: NAV ACUTE 18:07
PROVIDERS: ADMIT Internal Medicine; ATTEND Internal Medicine
DX: E86.0 Dehydration (principal); J96.91 Respiratory failure, unspecified with hypoxia; N39.0 Urinary tract infection, site not specified; I50.32 Chronic diastolic (congestive) heart failure; Z66 Do not resuscitate; I11.0 Hypertensive heart disease with heart failure; I48.91 Unspecified atrial fibrillation; M19.91 Primary osteoarthritis, unspecified site; E03.9 Hypothyroidism, unspecified; R53.81 Other malaise; B96.20 Unspecified Escherichia coli [E. coli] as the cause of diseases classified elsewhere; Z96.652 Presence of left artificial knee joint; K21.9 Gastro-esophageal reflux disease without esophagitis; N28.9 Disorder of kidney and ureter, unspecified; Z88.2 Allergy status to sulfonamides; Z88.8 Allergy status to other drugs, medicaments and biological substances; Z79.01 Long term (current) use of anticoagulants; Z90.89 Acquired absence of other organs; Z88.0 Allergy status to penicillin; I46.9 Cardiac arrest, cause unspecified; I87.2 Venous insufficiency (chronic) (peripheral); L89.152 Pressure ulcer of sacral region, stage 2
CPT/HCPCS: 36415; 71045; 80048; 82550; 82553; 83605; 83880; 84443; 84484; 85025; 94640; J1940; J7620